=== PATIENT | male | born 1980 | race Caucasian/White ===

== ENCOUNTER → 2020-09-08 09:36 | Outpatient (BNVA) | payer MEDICAID, SELFPAY | PROVIDERS: Visit Provider Internal Medicine | DX: F11.20 Opioid dependence, uncomplicated (principal) | CPT/HCPCS: 80305; 99212 ==

== ENCOUNTER → 2020-10-09 09:35 | Outpatient (BNVA) | payer MEDICAID, SELFPAY | PROVIDERS: Visit Provider Internal Medicine | DX: F11.20 Opioid dependence, uncomplicated (principal); M25.512 Pain in left shoulder | CPT/HCPCS: 80305; 99212 ==

== ENCOUNTER → 2020-12-08 10:00 | Outpatient (BNVA) | payer MEDICAID, SELFPAY | PROVIDERS: Visit Provider Internal Medicine | DX: Z76.89 Persons encountering health services in other specified circumstances (principal) ==

== ENCOUNTER → 2020-12-27 10:13 | Outpatient (BNVA) | payer MEDICAID, SELFPAY | PROVIDERS: PCP Internal Medicine; Visit Provider Internal Medicine | DX: F11.99 Opioid use, unspecified with unspecified opioid-induced disorder (principal) ==

== ENCOUNTER → 2021-01-24 10:10 | Outpatient (BNVA) | payer MEDICAID, SELFPAY | PROVIDERS: PCP Internal Medicine; Visit Provider Internal Medicine | DX: F11.99 Opioid use, unspecified with unspecified opioid-induced disorder (principal) | CPT/HCPCS: 80305; 99212 ==

== ENCOUNTER → 2021-02-21 11:39 | Outpatient (BNVA) | payer MEDICAID, SELFPAY | PROVIDERS: PCP Internal Medicine; Visit Provider Internal Medicine | DX: F11.99 Opioid use, unspecified with unspecified opioid-induced disorder (principal) | CPT/HCPCS: 80305; 99212 ==

== ENCOUNTER → 2021-03-21 11:06 | Outpatient (BNVA) | payer MEDICAID, SELFPAY | PROVIDERS: Visit Provider Internal Medicine | DX: F11.20 Opioid dependence, uncomplicated (principal); Z51.81 Encounter for therapeutic drug level monitoring; Z79.899 Other long term (current) drug therapy | CPT/HCPCS: 80305; 99212 ==

== ENCOUNTER → 2021-04-18 11:02 | Outpatient (BNVA) | payer MEDICAID, SELFPAY | PROVIDERS: Visit Provider Internal Medicine | DX: F11.99 Opioid use, unspecified with unspecified opioid-induced disorder (principal) | CPT/HCPCS: 80305; 99211 ==

== ENCOUNTER → 2021-04-24 09:23 | Outpatient (BNVA) | payer SELFPAY | PROVIDERS: Visit Provider Physician Assistant | DX: Z02.79 Encounter for issue of other medical certificate (principal) ==

== ENCOUNTER → 2021-05-18 13:38 | Outpatient (BNVA) | payer MEDICAID, SELFPAY | PROVIDERS: Visit Provider Internal Medicine | DX: Z51.81 Encounter for therapeutic drug level monitoring (principal); F11.90 Opioid use, unspecified, uncomplicated | CPT/HCPCS: 80305; 99212 ==

== ENCOUNTER → 2021-07-13 14:07 | Outpatient (BNVA) | payer MEDICAID, SELFPAY | PROVIDERS: Visit Provider Internal Medicine | DX: Z51.81 Encounter for therapeutic drug level monitoring (principal) | CPT/HCPCS: 80305; 99211 ==

== ENCOUNTER → 2021-08-20 16:52 | Outpatient (BNVA) | payer MEDICAID, SELFPAY | PROVIDERS: Visit Provider Internal Medicine | DX: F11.99 Opioid use, unspecified with unspecified opioid-induced disorder (principal); M25.511 Pain in right shoulder; Z47.1 Aftercare following joint replacement surgery; Z98.890 Other specified postprocedural states | CPT/HCPCS: 99212 ==

== ENCOUNTER → 2021-09-19 14:09 | Outpatient (BNVA) | payer MEDICAID, SELFPAY | PROVIDERS: Visit Provider Internal Medicine | DX: Z51.81 Encounter for therapeutic drug level monitoring (principal); F11.90 Opioid use, unspecified, uncomplicated | CPT/HCPCS: 80305; 99212 ==

== ENCOUNTER → 2021-10-17 13:30 | Outpatient (BNVA) | payer MEDICAID, SELFPAY | PROVIDERS: Visit Provider Internal Medicine | DX: F11.20 Opioid dependence, uncomplicated (principal); Z51.81 Encounter for therapeutic drug level monitoring; Z79.899 Other long term (current) drug therapy | CPT/HCPCS: 80305; 99212 ==

== ENCOUNTER → 2021-11-14 14:06 | Outpatient (BNVA) | payer MEDICAID, SELFPAY | PROVIDERS: Visit Provider Internal Medicine | DX: Z51.81 Encounter for therapeutic drug level monitoring (principal); F11.20 Opioid dependence, uncomplicated | CPT/HCPCS: 80305; 99212 ==

== ENCOUNTER → 2021-12-03 13:43 | Outpatient (BNVA) | payer OTHER, MEDICAID, SELFPAY | PROVIDERS: PCP Internal Medicine; Visit Provider Nurse Practitioner Family | DX: R20.1 Hypoesthesia of skin (principal); G47.9 Sleep disorder, unspecified; F07.81 Postconcussional syndrome | CPT/HCPCS: 99212 ==

== ENCOUNTER → 2022-01-16 11:42 | Outpatient (BNVA) | payer OTHER, SELFPAY | PROVIDERS: Visit Provider Internal Medicine | DX: Z51.81 Encounter for therapeutic drug level monitoring (principal); F11.20 Opioid dependence, uncomplicated | CPT/HCPCS: 80305; 99212 ==

== ENCOUNTER → 2022-03-13 11:40 | Outpatient (BNVA) | payer OTHER, MEDICAID, SELFPAY | PROVIDERS: Visit Provider Internal Medicine | DX: Z51.81 Encounter for therapeutic drug level monitoring (principal); F11.20 Opioid dependence, uncomplicated; F07.81 Postconcussional syndrome; G43.909 Migraine, unspecified, not intractable, without status migrainosus | CPT/HCPCS: 80305; 99212 ==

== ENCOUNTER → 2022-05-10 10:08 | Outpatient (BNVA) | payer MEDICAID, SELFPAY | PROVIDERS: Visit Provider Internal Medicine | DX: Z51.81 Encounter for therapeutic drug level monitoring (principal); F11.20 Opioid dependence, uncomplicated | CPT/HCPCS: 80305; 99212 ==

== ENCOUNTER → 2022-05-17 10:40 | Outpatient (BNVA) | payer MEDICAID, SELFPAY | PROVIDERS: PCP Internal Medicine; Visit Provider Nurse Practitioner Family | DX: G43.909 Migraine, unspecified, not intractable, without status migrainosus (principal); R20.1 Hypoesthesia of skin; F07.81 Postconcussional syndrome; M25.519 Pain in unspecified shoulder; Z79.899 Other long term (current) drug therapy | CPT/HCPCS: 99212 ==

== ENCOUNTER → 2022-07-15 11:36 | Outpatient (BNVA) | payer MEDICAID, SELFPAY | PROVIDERS: Visit Provider Internal Medicine | DX: Z51.81 Encounter for therapeutic drug level monitoring (principal); F11.20 Opioid dependence, uncomplicated | CPT/HCPCS: 99212 ==

== ENCOUNTER → 2022-08-14 10:33 | Outpatient (BNVA) | payer MEDICAID, SELFPAY | PROVIDERS: PCP Internal Medicine; Visit Provider Nurse Practitioner Family | DX: F07.81 Postconcussional syndrome (principal); R20.1 Hypoesthesia of skin; S46.212A Strain of muscle, fascia and tendon of other parts of biceps, left arm, initial encounter; Z79.899 Other long term (current) drug therapy | CPT/HCPCS: 99212 ==

== ENCOUNTER → 2022-09-06 11:48 | Outpatient (BNVA) | payer MEDICAID, SELFPAY | PROVIDERS: Visit Provider Internal Medicine | DX: Z51.81 Encounter for therapeutic drug level monitoring (principal); F11.20 Opioid dependence, uncomplicated | CPT/HCPCS: 99212 ==

== ENCOUNTER → 2022-10-30 10:59 | Outpatient (BNVA) | payer MEDICAID, SELFPAY | PROVIDERS: Visit Provider Internal Medicine | DX: F11.20 Opioid dependence, uncomplicated (principal); Z79.899 Other long term (current) drug therapy; Z51.81 Encounter for therapeutic drug level monitoring | CPT/HCPCS: 99212 ==

== ENCOUNTER → 2022-11-13 11:05 | Outpatient (BNVA) | payer MEDICAID, SELFPAY | PROVIDERS: Visit Provider Nurse Practitioner Family | DX: F07.81 Postconcussional syndrome (principal); G43.909 Migraine, unspecified, not intractable, without status migrainosus; R20.1 Hypoesthesia of skin | CPT/HCPCS: 99212 ==

== ENCOUNTER → 2022-12-25 11:24 | Outpatient (BNVA) | payer MEDICAID, SELFPAY | PROVIDERS: PCP Internal Medicine; Visit Provider Nurse Practitioner Psychiatric/Mental Health | DX: Z51.81 Encounter for therapeutic drug level monitoring (principal); F11.20 Opioid dependence, uncomplicated | CPT/HCPCS: 80305; 99212 ==

== ENCOUNTER → 2023-02-13 11:35 | Outpatient (BNVA) | payer MEDICAID, SELFPAY | PROVIDERS: PCP Internal Medicine; Visit Provider Nurse Practitioner Family | DX: G43.909 Migraine, unspecified, not intractable, without status migrainosus (principal); F07.81 Postconcussional syndrome | CPT/HCPCS: 99212 ==

== ENCOUNTER → 2023-02-18 11:33 | Outpatient (BNVA) | payer MEDICAID, SELFPAY | PROVIDERS: PCP Internal Medicine; Visit Provider Nurse Practitioner Psychiatric/Mental Health | DX: F11.20 Opioid dependence, uncomplicated (principal) | CPT/HCPCS: 99212 ==

== ENCOUNTER 2023-04-04 09:36 | Outpatient (REF) | payer MEDICAID, SELFPAY ==
[2023-04-04 11:16] LABS: MANUAL DIFF FLAG NO
[2023-04-04 11:48] LABS: Basophils Absolute Auto 0.1 X10*3/uL (0.0-0.2); Basophils Percent Auto 0.6 % (0-2); Eosinophils Absolute Auto 0.2 X10*3/uL (0.0-0.4); Eosinophils Percent Auto 1.7 % (0-4); Hematocrit 53.1 % (42.0-52.0); Hemoglobin 17.7 g/dl (14.0-18.0); Imm Gran Abs Auto 0.05 X10*3/uL (0.00-0.03); Imm Gran Pct Auto 0.5 % (0.0-0.4); Lymphocytes Percent Auto 28.8 % (20-40); Mean Corpuscular HGB Conc 33.3 g/dl (31.0-36.0); Mean Corpuscular Hemoglobin 29.7 pg (27.0-33.0); Mean Corpuscular Volume 89.1 fL (80.0-98.0); Mean Platelet Volume 9.7 fL (9.4-12.4); Monocytes Absolute Auto 0.9 X10*3/uL (0.1-1.2); Monocytes Percent Auto 8.4 % (2-11); Neutrophils Absolute Auto 6.2 x10*3/uL (2.0-8.3); Platelet Count 290 X10*3/uL (160-400); Red Blood Count 5.96 X10*6/uL (4.60-5.80); Red Cell Distribution Width 13.3 % (11.0-16.0); White Blood Count 10.4 X10*3/uL (4.8-10.8)
[2023-04-04 12:41] LABS: Alanine Aminotransferase 57 U/L (0-40); Albumin Level 4.2 g/dL (3.5-5.0); Alkaline Phosphatase 30 U/L (39-117); Anion Gap 14 (12-20); Aspartate Amino Transferase 49 U/L (5-37); Bilirubin Total 0.8 mg/dL (0.0-1.0); Blood Urea Nitrogen 16 mg/dL (9-16); Calcium 9.5 mg/dL (8.4-10.2); Carbon Dioxide 30 mmol/L (22-29); Chloride 100 mmol/L (96-108); Cholesterol 182 mg/dL; Estimated Glomerular Filt Rate > 60; Glucose Random 72 mg/dL (60-115); HDL Cholesterol 33 mg/dL; LDL Cholesterol Calculated 133 mg/dl; Magnesium 1.9 mg/dL (1.6-2.6); Potassium 4.7 mmol/L (3.3-5.1); Sodium 139 mmol/L (135-145); Total Protein 6.6 g/dL (6.5-8.0); Triglycerides 82 mg/dL
[2023-04-04 13:04] LABS: Thyroid Stimulating Hormone 1.85 uIU/mL (0.32-4.0)
== END 2023-04-04 09:37 | disposition home or self-care (01) ==
LOC: HO.MANLDS 09:36
PROVIDERS: Visit Provider Internal Medicine
DX: Z00.00 Encounter for general adult medical examination without abnormal findings (principal); R00.0 Tachycardia, unspecified
CPT/HCPCS: 36415; 80053; 80061; 83735; 84443; 85025

== ENCOUNTER 2023-04-10 11:38 | Outpatient (REF) | payer MEDICAID, SELFPAY ==
--- NOTE | ~2023-04-10 | XR_ITS ---
EXAMINATION: XR BILATERAL HIPS WITH AP PELVIS CLINICAL INFORMATION: Bilateral hip pain COMPARISON: None available. TECHNIQUE: AP pelvis and 2 views of each hip FINDINGS: AP film of the pelvis does not demonstrate any evidence of acute fracture or diastases. Sacroiliac joints appear unremarkable. Mild increase density of the facet joints is seen which may be related to some degree of facet arthropathy. There are some changes of enthesopathy present. Some degenerative subchondral cysts are seen about the pubic symphysis. 2 views of the right hip do not demonstrate any evidence of acute fracture or dislocation. Hip joint space is maintained. No abnormal lytic or sclerotic lesions identified. No significant spurring is seen. 2 views of the left hip do not demonstrate any evidence of acute fracture or dislocation. Hip joint space maintained. No significant spurring. No abnormal lytic or sclerotic lesions. There is some mild spurring about the greater trochanter. XR/XR hip BI w PEL1V IMPRESSION: No significant bony abnormality of the AP pelvis or hips as described.
== END 2023-04-10 11:39 | disposition home or self-care (01) ==
LOC: HO.XRAY 11:38
PROVIDERS: Visit Provider Internal Medicine
DX: M25.552 Pain in left hip (principal)
CPT/HCPCS: 73521

== ENCOUNTER → 2023-04-15 11:36 | Outpatient (BNVA) | payer MEDICAID, SELFPAY | PROVIDERS: PCP Internal Medicine; Visit Provider Nurse Practitioner Psychiatric/Mental Health | DX: Z51.81 Encounter for therapeutic drug level monitoring (principal); F11.20 Opioid dependence, uncomplicated | CPT/HCPCS: 80305; 99212 ==

== ENCOUNTER → 2023-04-22 08:55 | Outpatient (BNVA) | payer SELFPAY | PROVIDERS: PCP Internal Medicine; Visit Provider Internal Medicine | DX: Z02.79 Encounter for issue of other medical certificate (principal) ==

== ENCOUNTER 2023-07-08 11:24 | Outpatient (AMB) | payer MEDICAID, SELFPAY ==
--- NOTE | 2023-07-08 11:25 | MHC.OFFVIS ---
Intake Vital Signs 07/08/23 11:29 BP 108/72 Blood Pressure Location Lt radial Position Sitting Pulse 94 Pulse Source Pulse Oximeter Pulse Oximetry (%) 95 Oxygen Delivery Method Room Air Intake Visit Reasons: MAT Visit Intake Note: The patient presents for a mat visit Digital Marketing Lead Required: No Allergies No Known Allergies Allergy (Verified 07/08/23 11:25) Do you need a note to return to daycare/school/sports/work: No HPI MAT Visit HPI Details Patient presents for follow up Currently prescribed Suboxone 8mg TID Reports he will need shoulder surgery later this year No concerns related to suboxone, finds it helpful [facility] Medical History (Updated 02/18/23 @ 12:44 by Opal Beach CNP) Opioid use disorder Shoulder pain Surgical History (Updated 02/13/23 @ 11:44 by Cami Roman CMA) History of shoulder surgery History of surgery Hx of rotator cuff surgery Family History Father Cancer Diabetes Hyperlipidemia Mother Cancer Hyperlipidemia HTN (hypertension) Seizures Social History Household Members: Spouse Alcohol intake: never Patient Tobacco Use Status: Never used Tobacco Current occupational status: other 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 Review of Systems Const Reports as per HPI and Reports no additional complaints Physical Exam Vital Signs: Last Vital Signs Pulse 94 07/08/23 11:29 BP 108/72 07/08/23 11:29 Pulse Ox 95 07/08/23 11:29 Oxygen Delivery Method Room Air 07/08/23 11:29 Const General: cooperative, healthy appearing and no acute distress Psych Appearance: well kempt Speech and movement: Clear speech present Affect: normal affect Attitude: cooperative Thought process: Normal thought process present Thought content: Normal thought content present Insight: Good insight present (Psych) Judgement: Good judgement present (Psych) Assessment & Plan Assessment & Plan (1) Opioid dependence: Code(s): F11.20 - Opioid dependence, uncomplicated Plan: continue suboxone at current dose follow up 3 months Coding Level of Care Code Est Pt Level 3 (18887) Diagnoses Opioid dependence F11.20
[2023-07-08 11:29] VITALS: BP 108/72; PULSE 94; O2SAT 95
== END 2023-07-08 11:51 | disposition home or self-care (01) ==
LOC: HO.HCC 11:24
PROVIDERS: PCP Internal Medicine; Visit Provider Nurse Practitioner Psychiatric/Mental Health
DX: F11.20 Opioid dependence, uncomplicated (principal)
CPT/HCPCS: 99213

== ENCOUNTER → 2023-07-08 11:24 | Outpatient (BNVA) | payer MEDICAID, SELFPAY | PROVIDERS: PCP Internal Medicine; Visit Provider Nurse Practitioner Psychiatric/Mental Health | DX: Z51.81 Encounter for therapeutic drug level monitoring (principal); F11.20 Opioid dependence, uncomplicated | CPT/HCPCS: 99213 ==

== ENCOUNTER 2023-09-03 10:10 | Outpatient (AMB) | payer MEDICAID, SELFPAY ==
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
[2023-09-03 10:16] VITALS: BP 118/72; PULSE 86; O2SAT 96
== END 2023-09-03 11:32 | disposition home or self-care (01) ==
PROVIDERS: Visit Provider Nurse Practitioner Family
DX: R20.1 Hypoesthesia of skin (principal); F07.81 Postconcussional syndrome; G44.309 Post-traumatic headache, unspecified, not intractable
CPT/HCPCS: 99214

== ENCOUNTER → 2023-09-03 10:10 | Outpatient (BNVA) | payer MEDICAID, SELFPAY | PROVIDERS: Visit Provider Nurse Practitioner Family | DX: F07.81 Postconcussional syndrome (principal); G43.909 Migraine, unspecified, not intractable, without status migrainosus; M25.511 Pain in right shoulder; R20.1 Hypoesthesia of skin; F11.20 Opioid dependence, uncomplicated | CPT/HCPCS: 99212 ==

== ENCOUNTER 2023-09-30 10:03 | Outpatient (AMB) | payer MEDICAID, SELFPAY ==
--- NOTE | 2023-09-30 10:05 | A.OFFVIS_ITS ---
Intake Vital Signs 09/30/23 10:10 BP 114/70 Blood Pressure Location Lt radial Position Sitting Pulse 100 Pulse Source Pulse Oximeter Pulse Oximetry (%) 97 Oxygen Delivery Method Room Air Intake Visit Reasons: MAT Visit Intake Note: the patient presents for a mat visit Grinding Room Inspector Required: No Allergies No Known Allergies Allergy (Verified 09/30/23 10:13) Do you need a note to return to daycare/school/sports/work: No HPI MAT Visit HPI Details Pt presents for DONAVON treatment and follow up. Feels stable in recovery, no cravings. Has shoulder surgery coming up in early October, has no concerns about pain co ntrol. Tolerating 8mg Suboxone tid, denies side effects. Reports life is good, trying to settle with workman's comp. Planning on taking trip soon to [place] with family. No questions or concerns today. [facility] Medical History (Updated 09/30/23 @ 10:35 by Cami Wilkes NP) Opioid use disorder Shoulder pain Surgical History History of shoulder surgery History of surgery Hx of rotator cuff surgery Family History Father Cancer Diabetes Hyperlipidemia Mother Cancer Hyperlipidemia HTN (hypertension) Seizures Social History Household Members: Spouse Alcohol intake: never Patient Tobacco Use Status: Never used Tobacco Current occupational status: other 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 Review of Systems Const Reports as per HPI Physical Exam Vital Signs: Last Vital Signs Pulse 100 09/30/23 10:10 BP 114/70 09/30/23 10:10 Pulse Ox 97 09/30/23 10:10 Oxygen Delivery Method Room Air 09/30/23 10:10 Const General: cooperative, healthy appearing and no acute distress Resp Effort & Inspection: normal respiratory effort Skin General skin exam: no rashes or lesions noted Psych Appearance: grossly normal and well kempt Mental Status: mental status grossly normal Affect: normal affect Attitude: cooperative Judgement: Good judgement present (Psych) Assessment & Plan Assessment & Plan (1) Opioid dependence: Code(s): F11.20 - Opioid dependence, uncomplicated Qualifiers: Substance use status: in remission Qualified Code(s): F11.21 - Opioid dependence, in remission Plan: Continue suboxone at current dose. Follow up in 3 months. Coding Level of Care Code Est Pt Level 3 (56369) Diagnoses Opioid dependence in remission F11.21 Substance use status: in remission
[2023-09-30 10:10] VITALS: BP 114/70; PULSE 100; O2SAT 97
== END 2023-09-30 10:37 | disposition home or self-care (01) ==
PROVIDERS: PCP Internal Medicine; Visit Provider Nurse Practitioner Family
DX: F11.21 Opioid dependence, in remission (principal)
CPT/HCPCS: 99213

== ENCOUNTER → 2023-09-30 10:03 | Outpatient (BNVA) | payer MEDICAID, SELFPAY | PROVIDERS: PCP Internal Medicine; Visit Provider Nurse Practitioner Psychiatric/Mental Health | DX: Z51.81 Encounter for therapeutic drug level monitoring (principal); F11.21 Opioid dependence, in remission | CPT/HCPCS: 99212 ==

== ENCOUNTER 2023-12-30 10:23 | Outpatient (AMB) | payer MEDICAID, SELFPAY ==
--- NOTE | 2023-12-30 10:25 | A.OFFVISCC_ITS ---
Intake Vital Signs 12/30/23 10:30 BP 124/72 Blood Pressure Location Lt radial Position Sitting Pulse 96 Pulse Source Pulse Oximeter Pulse Oximetry (%) 98 Oxygen Delivery Method Room Air Intake Visit Reasons: MAT Visit Intake Note: the patient presents for a mat visit Laboratory Animal Care Veterinarian Required: No Allergies No Known Allergies Allergy (Verified 12/30/23 10:31) Medication List - Last Reconciled 12/30/23 by Cami Wilkes, ANN-MARIE albuterol sulfate 90 mcg/actuation (Ventolin HFA) 2 puffs inhalation Q4-6H PRN amitriptyline 37.5 - 50 mg (1.5 - 2 x 25 mg) PO BEDTIME ascorbic acid (vitamin C) 1 g PO DAILY atorvastatin (Lipitor) 10 mg PO DAILY buprenorphine-naloxone 8-2 mg 1 film buccal TID gmlopdtrun-kgslaxbklrvwr-efye 50-300-40 mg (Fioricet) 1 - 2 caps PO Q4-6H PRN 90 days cholecalciferol (vitamin D3) 25 mcg PO DAILY dextroamphetamine-amphetamine 12.5 mg (Adderall) 12.5 mg PO DAILY 30 days dextroamphetamine-amphetamine 20 mg ER (Adderall XR) 20 mg PO QAM 30 days fluticasone propion-salmeterol 100-50 mcg/dose (Advair Diskus) 1 inh inhalation BID fremanezumab-vfrm (Ajovy Syringe) 225 mg (1.5 mL) subcut ONCE 30 days lisinopril-hydrochlorothiazide 20-25 mg 1 tab PO DAILY magnesium oxide 400 mg PO BEDTIME 30 days metoprolol succinate ER 50 mg PO DAILY montelukast (Singulair) 10 mg PO DAILY multivitamin 1 tab PO DAILY naloxone 4 mg/actuation (Narcan) 4 mg intranasal Q2M PRN riboflavin (vitamin B2) 200 mg (2 x 100 mg) PO BID 30 days testosterone cypionate 100 mg IM QWEEK Do you need a note to return to daycare/school/sports/work: No HPI MAT Visit HPI Details Pt presents for OUD treatment and follow up He has no concerns today for recovery Recently had surgery on his left shoulder, reports it went well. He is waiting to have surgery done on his right shoulder now, he has follow up with surgeon on 01/26 Tolerating dose well. Has no concerns for side effects at this time. [facility] Medical History (Updated 09/30/23 @ 10:35 by Cami Wilkes NP) Opioid use disorder Shoulder pain Surgical History History of shoulder surgery History of surgery Hx of rotator cuff surgery Family History Father Cancer Diabetes Hyperlipidemia Mother Cancer Hyperlipidemia HTN (hypertension) Seizures Social History Household Members: Spouse Alcohol intake: never Patient Tobacco Use Status: Never used Tobacco Current occupational status: other 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 Review of Systems Const Reports as per HPI Physical Exam Vital Signs: Last Vital Signs Pulse 96 12/30/23 10:30 BP 124/72 12/30/23 10:30 Pulse Ox 98 12/30/23 10:30 Oxygen Delivery Method Room Air 12/30/23 10:30 Const General: cooperative, healthy appearing and no acute distress Resp Effort & Inspection: normal respiratory effort Psych Appearance: grossly normal and well kempt Mental Status: mental status grossly normal Speech and movement: Normal speech and movement present Affect: normal affect Attitude: cooperative Thought content: Normal thought content present Insight: Good insight present (Psych) Judgement: Good judgement present (Psych) Assessment & Plan Assessment & Plan (1) Opioid use disorder: Code(s): F11.99 - Opioid use, unspecified with unspecified opioid-induced disorder Plan: -Mass pat reviewed -Tolerating suboxone dose 8mg tid -Follow up 3 months Medications: New naloxone 4 mg/actuation (Narcan) spray 1 dose into ONE nostril; alternate nostrils w each dose until help arrives 4 mg intranasal Q2M PRN 2 ea 0RF opioid overdose Refilled buprenorphine-naloxone 8-2 mg 1 film buccal TID 90 ea 2RF Coding Level of Care Code Est Pt Level 3 (13520) Diagnoses Opioid use disorder F11.99
[2023-12-30 10:30] VITALS: BP 124/72; PULSE 96; O2SAT 98
== END 2023-12-30 11:11 | disposition home or self-care (01) ==
PROVIDERS: PCP Internal Medicine; Visit Provider Nurse Practitioner Family
DX: F11.99 Opioid use, unspecified with unspecified opioid-induced disorder (principal)
CPT/HCPCS: 99213

== ENCOUNTER → 2023-12-30 10:23 | Outpatient (BNVA) | payer MEDICAID, SELFPAY | PROVIDERS: PCP Internal Medicine; Visit Provider Nurse Practitioner Family | DX: F11.20 Opioid dependence, uncomplicated (principal) | CPT/HCPCS: 99212 ==

== ENCOUNTER 2024-01-07 11:14 | Outpatient (AMB) | payer MEDICAID, SELFPAY ==
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
[2024-01-07 11:37] VITALS: BP 152/100; PULSE 112; O2SAT 98
== END 2024-01-07 12:04 | disposition home or self-care (01) ==
PROVIDERS: PCP Internal Medicine; Visit Provider Nurse Practitioner Family
DX: G44.309 Post-traumatic headache, unspecified, not intractable (principal); F07.81 Postconcussional syndrome
CPT/HCPCS: 99214

== ENCOUNTER → 2024-01-07 11:14 | Outpatient (BNVA) | payer MEDICAID, SELFPAY | PROVIDERS: PCP Internal Medicine; Visit Provider Nurse Practitioner Family | DX: G43.909 Migraine, unspecified, not intractable, without status migrainosus (principal); F07.81 Postconcussional syndrome | CPT/HCPCS: 99212 ==

== ENCOUNTER 2024-02-13 15:10 | Outpatient (REF) | payer MEDICAID, SELFPAY ==
[2024-02-13 17:27] LABS: MANUAL DIFF FLAG NO
[2024-02-13 17:31] LABS: Basophils Percent Auto 0.4 % (0-2); Eosinophils Absolute Auto 0.2 X10*3/uL (0.0-0.4); Eosinophils Percent Auto 2.3 % (0-4); Hematocrit 53.2 % (42.0-52.0); Hemoglobin 18.1 g/dl (14.0-18.0); Imm Gran Abs Auto 0.03 X10*3/uL (0.00-0.03); Imm Gran Pct Auto 0.3 % (0.0-0.4); Lymphocytes Absolute Auto 2.9 X10*3/uL (1.2-4.9); Lymphocytes Percent Auto 29.3 % (20-40); Mean Corpuscular Hemoglobin 29.8 pg (27.0-33.0); Mean Corpuscular Volume 87.5 fL (80.0-98.0); Mean Platelet Volume 9.6 fL (9.4-12.4); Monocytes Absolute Auto 0.9 X10*3/uL (0.1-1.2); Monocytes Percent Auto 8.6 % (2-11); Neutrophils Percent Auto 59.1 % (45-73); Platelet Count 231 X10*3/uL (160-400); Red Blood Count 6.08 X10*6/uL (4.60-5.80); Red Cell Distribution Width 13.2 % (11.0-16.0); White Blood Count 10.1 X10*3/uL (4.8-10.8)
[2024-02-13 17:42] LABS: Alanine Aminotransferase 51 U/L (0-40); Albumin Level 4.2 g/dL (3.5-5.0); Alkaline Phosphatase 41 U/L (39-117); Anion Gap 12 (12-20); Aspartate Amino Transferase 42 U/L (5-37); Bilirubin Total 0.4 mg/dL (0.0-1.0); Blood Urea Nitrogen 17 mg/dL (9-16); Calcium 9.8 mg/dL (8.4-10.2); Carbon Dioxide 29 mmol/L (22-29); Chloride 101 mmol/L (96-108); Estimated Glomerular Filt Rate > 60; Glucose Random 85 mg/dL (60-115); Sodium 138 mmol/L (135-145); Total Protein 6.9 g/dL (6.5-8.0)
[2024-02-13 18:10] LABS: Erythrocyte Sedimentation Rate 1 MM/HR (0-15)
== END 2024-02-13 15:11 | disposition home or self-care (01) ==
LOC: HO.MANLDS 15:10
PROVIDERS: Visit Provider Internal Medicine
DX: R10.31 Right lower quadrant pain (principal)
CPT/HCPCS: 36415; 80053; 85025; 85652

== ENCOUNTER 2024-03-23 10:24 | Outpatient (AMB) | payer MEDICAID, SELFPAY ==
--- NOTE | 2024-03-23 10:25 | MHC.AM.SUB ---
Vital Signs 03/23/24 10:27 BP 130/70 Blood Pressure Location Lt brachial Position Sitting Pulse 80 Pulse Source Pulse Oximeter Pulse Oximetry (%) 96 Intake Visit Reasons: MAT Visit Allergies No Known Allergies Allergy (Verified 01/07/24 11:37) HPI HPI MAT Visit: Details: Patient presents for MAT visit Doing well overall Has no concerns for recovery Tolerating suboxone 8mg TID, has no cravings or withdrawal symptoms Is getting a new puppy soon that he is excited about HPI Comments Details: Patient presents for MAT visit [facility] Medical History (Updated 09/30/23 @ 10:35 by Cami Wilkes NP) Opioid use disorder Shoulder pain Surgical History History of shoulder surgery History of surgery Hx of rotator cuff surgery Family History Father Cancer Diabetes Hyperlipidemia Mother Cancer Hyperlipidemia HTN (hypertension) Seizures Social History Household Members: Spouse Alcohol intake: never Patient Tobacco Use Status: Never used Tobacco Current occupational status: other 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 Review of Systems Const Reports as per HPI Physical Exam Vital Signs: Last Vital Signs Pulse 80 03/23/24 10:27 BP 130/70 03/23/24 10:27 Pulse Ox 96 03/23/24 10:27 Const General: cooperative and no acute distress Resp Effort & Inspection: normal respiratory effort and able to speak in complete sentences Psych Appearance: grossly normal Mental Status: mental status grossly normal Speech and movement: Normal speech and movement present Affect: normal affect Attitude: cooperative Thought process: Normal thought process present Assessment & Plan Assessment & Plan (1) Opioid use disorder: Code(s): F11.99 - Opioid use, unspecified with unspecified opioid-induced disorder Category: Medical Plan: -MAss pat reviewed -Suboxone refilled and sent to pharmacy -Follow up 3 months Medications: Refilled buprenorphine-naloxone 8-2 mg 1 film buccal TID 90 ea 2RF
[2024-03-23 10:27] VITALS: BP 130/70; PULSE 80; O2SAT 96
== END 2024-03-23 10:47 | disposition home or self-care (01) ==
PROVIDERS: PCP Internal Medicine; Visit Provider Nurse Practitioner Family
DX: F11.99 Opioid use, unspecified with unspecified opioid-induced disorder (principal)
CPT/HCPCS: 99213

== ENCOUNTER → 2024-03-23 10:24 | Outpatient (BNVA) | payer MEDICAID, SELFPAY | PROVIDERS: PCP Internal Medicine; Visit Provider Nurse Practitioner Family | DX: Z51.81 Encounter for therapeutic drug level monitoring (principal); F11.20 Opioid dependence, uncomplicated | CPT/HCPCS: 99212 ==

== ENCOUNTER 2024-04-07 10:32 | Outpatient (REF) | payer MEDICAID, SELFPAY ==
[2024-04-07 13:49] LABS: Estimated Average Glucose 105 mg/dL; Hemoglobin A1c % 5.3 % (<6.0)
[2024-04-07 14:06] LABS: Alanine Aminotransferase 39 U/L (0-40); Albumin Level 4.1 g/dL (3.5-5.0); Alkaline Phosphatase 36 U/L (39-117); Anion Gap 13 (12-20); Aspartate Amino Transferase 48 U/L (5-37); Bilirubin Total 0.6 mg/dL (0.0-1.0); Blood Urea Nitrogen 16 mg/dL (9-16); Calcium 9.9 mg/dL (8.4-10.2); Carbon Dioxide 31 mmol/L (22-29); Chloride 99 mmol/L (96-108); Estimated Glomerular Filt Rate > 60; Ferritin 433 ng/mL (20-250); Glucose Random 62 mg/dL (60-115); Iron 148 mcg/dL (45-160); Percent Iron Saturation 39 % (15-50); Potassium 3.6 mmol/L (3.3-5.1); Sodium 139 mmol/L (135-145); Thyroid Stimulating Hormone 0.47 uIU/mL (0.32-4.0); Total Iron Binding Capacity 380 mcg/dL (228-428); Total Protein 7.2 g/dL (6.5-8.0); Unsaturated Iron Binding 232 ug/dL; Vitamin D 25-OH Total 104.6 ng/mL (>30)
[2024-04-07 14:07] LABS: Folate 12.1 ng/mL (> or = 4.0); Vitamin B12 536 pg/mL (200-900)
[2024-04-11 17:29] LABS: Testosterone, Total 172 ng/dL (250-1100)
== END 2024-04-07 10:33 | disposition home or self-care (01) ==
LOC: HO.MANLDS 10:32
PROVIDERS: Visit Provider Internal Medicine
DX: R53.83 Other fatigue (principal)
CPT/HCPCS: 36415; 80053; 82306; 82607; 82728; 82746; 83036; 83540; 84402; 84403; 84443

== ENCOUNTER 2024-04-13 12:57 | Outpatient (REF) | payer MEDICAID, SELFPAY ==
--- NOTE | ~2024-04-13 | CT_ITS ---
EXAMINATION: CT ABDOMEN AND PELVIS WITH CONTRAST CLINICAL INFORMATION: Right lower quadrant pain. COMPARISON: None available. TECHNIQUE: Multidetector volumetric images were obtained from the superior aspect of the liver through the pubic symphysis following administration 85 mL of Omnipaque 350 intravenous contrast. Sagittal and coronal reformatted images were obtained on the technologist's workstation. Oral contrast: Yes This CT examination was performed using dose optimization techniques as appropriate, variously including the following: *Automated exposure control *Adjustment of mA and/or kV according to patient size (this includes techniques or standardized protocols for targeted exams where dose is matched to indication/reason for exam; i.e. extremities or head) *Use of iterative reconstruction technique DLP: 583 mGy-cm FINDINGS: LUNG BASES: Nonspecific distal esophageal wall thickening. Small hiatal hernia. LIVER, GALLBLADDER, AND BILIARY TREE: The liver is normal in size, shape, and attenuation. No focal hepatic lesion or biliary ductal dilatation is present. The gallbladder is unremarkable with no evidence of radiopaque gallstones, gallbladder wall thickening, or obvious pericholecystic inflammatory changes. PANCREAS: Unremarkable. SPLEEN: Unremarkable. ADRENAL GLANDS: Unremarkable. KIDNEYS AND URETERS: The kidneys are normal in size, shape, and attenuation. No hydronephrosis, hydroureter, or calculi seen. No perinephric fluid collection. BLADDER: Unremarkable. GASTROINTESTINAL TRACT: Small and large bowel loops are of normal caliber. No small bowel obstruction. The appendix is within normal limits. ABDOMINAL WALL: Small fat-containing left inguinal hernia.. LYMPH NODES: No bulky lymphadenopathy. VASCULAR: Normal caliber abdominal aorta. PELVIC VISCERA: Enlarged prostate gland. OSSEOUS STRUCTURES: No destructive bone lesions. CT/CT abdomen pelvis w IV con IMPRESSION: No acute abnormality in the abdomen or pelvis.
[2024-04-13] MEDS: iohexoL 350 MG/ML 100 ML INFUS..BTL 85 ML IV (15:24)
[2024-04-13] MEDS: Barium Sulfate Oral (Mocha) 450 ML ORAL.SUSP 900 ML PO (15:35)
== END 2024-04-13 12:58 | disposition home or self-care (01) ==
LOC: HO.CT 12:57
PROVIDERS: PCP Internal Medicine; Visit Provider Internal Medicine
DX: R10.31 Right lower quadrant pain (principal)
CPT/HCPCS: 74177; Q9967

== ENCOUNTER 2024-04-16 09:54 | Outpatient (REF) | payer MEDICAID, SELFPAY ==
[2024-04-16 14:15] LABS: Iron 160 mcg/dL (45-160); Percent Iron Saturation 41 % (15-50); Total Iron Binding Capacity 391 mcg/dL (228-428); Unsaturated Iron Binding 231 ug/dL
[2024-04-16 14:19] LABS: Ferritin 565 ng/mL (20-250)
[2024-04-19 10:59] LABS: Transferrin 333 mg/dL (188-341)
== END 2024-04-16 09:55 | disposition home or self-care (01) ==
LOC: HO.MANLDS 09:54
PROVIDERS: Visit Provider Internal Medicine
DX: R77.8 Other specified abnormalities of plasma proteins (principal)
CPT/HCPCS: 36415; 82728; 83540; 84466

== ENCOUNTER → 2024-04-16 10:43 | Outpatient (BNVA) | payer SELFPAY | PROVIDERS: PCP Internal Medicine; Visit Provider Physician Assistant | DX: Z02.79 Encounter for issue of other medical certificate (principal) ==

== ENCOUNTER 2024-05-10 11:05 | Outpatient (AMB) | payer MEDICAID, SELFPAY ==
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
[2024-05-10 11:16] VITALS: BP 124/80; PULSE 99; O2SAT 95
== END 2024-05-10 11:55 | disposition home or self-care (01) ==
PROVIDERS: PCP Internal Medicine; Visit Provider Nurse Practitioner Family
DX: G43.909 Migraine, unspecified, not intractable, without status migrainosus (principal); F07.81 Postconcussional syndrome; G47.9 Sleep disorder, unspecified; R20.1 Hypoesthesia of skin
CPT/HCPCS: 99214

== ENCOUNTER → 2024-05-10 11:05 | Outpatient (BNVA) | payer MEDICAID, SELFPAY | PROVIDERS: PCP Internal Medicine; Visit Provider Nurse Practitioner Family | DX: G43.909 Migraine, unspecified, not intractable, without status migrainosus (principal); F07.81 Postconcussional syndrome; G47.9 Sleep disorder, unspecified; R20.1 Hypoesthesia of skin | CPT/HCPCS: 99212 ==

== ENCOUNTER 2024-08-16 13:43 | Outpatient (AMB) | payer MEDICAID, SELFPAY ==
--- NOTE | 2024-08-16 13:58 | A.OFFVISCC_ITS ---
Intake Visit Reasons: MAT Visit Allergies No Known Allergies Allergy (Verified 05/10/24 11:17) HPI HPI MAT Visit: Details: Patient presents for follow up Currently prescribed Suboxone 8mg TID Surgery scheduled for October no issues related to suboxone --tolerating dose PFSH Medical History (Updated 08/19/24 @ 14:41 by Opal Beach CNP) Opioid use disorder Shoulder pain Surgical History History of shoulder surgery History of surgery Hx of rotator cuff surgery Family History Father Cancer Diabetes Hyperlipidemia Mother Cancer Hyperlipidemia HTN (hypertension) Seizures Social History Household Members: Spouse Alcohol intake: never Patient Tobacco Use Status: Never used Tobacco Current occupational status: other 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 Review of Systems Const Reports as per HPI and Reports no additional complaints Physical Exam Const General: cooperative and no acute distress Psych Appearance: grossly normal Mental Status: mental status grossly normal Speech and movement: Normal speech and movement present Affect: normal affect Attitude: cooperative Thought process: Normal thought process present Assessment & Plan Assessment & Plan (1) Opioid dependence: Code(s): F11.20 - Opioid dependence, uncomplicated Category: Medical Qualifiers: Substance use status: in remission Qualified Code(s): F11.21 - Opioid dependence, in remission Plan: * continue suboxone at current dose * follow up 3 months--upcoming surgery
== END 2024-08-16 14:18 | disposition home or self-care (01) ==
PROVIDERS: PCP Internal Medicine; Visit Provider Nurse Practitioner Psychiatric/Mental Health
DX: F11.21 Opioid dependence, in remission (principal)
CPT/HCPCS: 99213

== ENCOUNTER → 2024-08-16 13:43 | Outpatient (BNVA) | payer MEDICAID, SELFPAY | PROVIDERS: PCP Internal Medicine; Visit Provider Nurse Practitioner Psychiatric/Mental Health | DX: F11.21 Opioid dependence, in remission (principal); Z51.81 Encounter for therapeutic drug level monitoring | CPT/HCPCS: 99212 ==

== ENCOUNTER 2024-12-07 10:10 | Outpatient (AMB) | payer MEDICAID, SELFPAY ==
[2024-12-07 10:17] VITALS: BP 122/80; PULSE 93; O2SAT 95; BMI 32.1
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
--- OUTSIDE RECORDS SUMMARY | 2024-12-07 10:48 | XMS_ITS | Data Portability ---
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 off but improved f/u with neuro Fatigue 21468658 R53.83 Vitamin D deficiency 347 56616 E55.9 Tick bite without infection 352267819 W57.XXXA Essential hypertension 11374368 I10 forgot bp med today [id number] Abhishek Otoole [facility] Internal Medicine [address] [facility] [place] [address] 11/03/2019 11:18:23 11/03/2019 11:39:12 Hypercholesterolemia 36307533 E78.00 Acute sinusitis 19003732 J01.90 Male hypogonadism 494708 06 E29.1 [id number] Abhishek Otoole [facility] Internal Medicine [address] [facility] [place] [address] 01/05/2021 12:02:11 01/05/2021 15:37:02 Active or passive immunization 410999035 Z23 discussion will be following Adult [facility] examination 066964826 Z00.00 doing well overall Asthma 471961276 J45.90 9 relates has been exposed to black mold and has been wheezing since exposure (in house where he was working) relates he has been using albuterol and is having sob will use pred pulse dose 97659 Abhishek Otoole [facility] Internal Medicine [address] [facility], [place] [address] 03/26/2022 10:04:50 03/26/2022 10:56:00 Active or passive immunization 090386768 Z23 discussion will be following Adult [facility] examination 274128042 Z00.01 still on WCstill having issues with his shoulders and this is still in contention with Asthma 828085907 J45.90 9 relates that he is doing better overall had a tough winter Hypercholesterolemia 136 30774 E78.00 [id number] Abhishek Otoole [facility] Internal Medicine [address] [facility] [place] [address] 08/19/2022 10:24:30 08/19/2022 12:31:43 Hypercholesterolemia 78170205 E78.00 will need to rechk Asthma 856298584 J45.90 9 relates that he is using albut inhaler about twice a week Seasonal a llergic rhinitis 933877550 J30.2 will refill and cont flonase [id number] Abhishek Otoole [facility] Internal [facility] [address] [facility] [place] [address] 04/01/2023 11:57:11 04/01/2023 13:10:00 Active or passive immunization 683701114 Z23 discussion will be following Adult [facility] examination 574505008 Z00.00 Tachycardia 9621813 R00. 0 Hypertensive disorder 38 870507 I10 [id number] Abhishek Otoole [facility] Internal Medicine [address] [facility] [place] [address] 08/22/2023 11:01:00 08/22/2023 12:18:14 Asthma 395100780 J45.909 relates that he is using albut inhaler about twice a week Hypercholesterolemia 136 63055 E78.00 will need to rechk Tachycardia 9550552 R00. 0 doing great no issues Hypertensive disorder 38 896153 I10 much better feels that home Family his tory of malignant melanoma 614747280 Z80.7 [id number] [facility] Internal Medicine [address] [facility] [place] [address] 02/13/2024 14:11:27 02/13/2024 16:03:26 Right lower quadrant pain 145658720 R10.31 Acute epididymitis 40856 000 N45.1 [id number] Abhishek Otoole [facility] Internal Medicine [address] [facility] [place] [address] 04/07/2024 09:46:38 04/07/2024 14:17:36 Active or passive immunization 559386781 Z23 discussion will be following Adult heal th examination 992048650 Z00.01 doing ok but has evid of achilles tendinitis on left Depression screening 171 078768 Z13.31 Neg Screening Fatigue 53696182 R53.83 needs lab Achilles tendinitis 1165 4001 M76.62 [id number] CARLEY ALEJANDRE [facility] [address] [facility] [place] [address] 10/05/2024 15:33:38 10/05/2024 16:38:31 Achilles tendinitis 69771259 M76.62 will start with XR Asthma 799899195 J45.90 9 relates that he is using albut inhaler about twice a week Depression screening 171 060583 Z13.31 Neg Screening Health Concerns Section Related Observation LastModified by Organization Detai ls LastModified Time None Recorded Concern Status LastModified by Organization Details LastModified Time None Recorded Advance Directives Directive None Recorded Payers Encounter Date Sequence Insurance Name Policy Number Policy Parekh Covered Member ID Parekh Member ID Guarantor Name 04/01/2023 1 [place] [facility] Bib Ellis [id number] Bib Ellis 08/22/2023 1 [place] [facility] Bib Arandain [id number] Bib Ellis 02/13/2024 1 [place] [facility] Bib Arandain [id number] Bib Ellis 04/07/2024 1 [place] [facility] Bib Antonio Ellis [id number] Bib Ellis 10/05/2024 1 [place] [facility] Bib Ellis [id number] Bib Ellis Notes Date Note Type Note Provider Name a sc Address Organization Details Recorded Time text/html Annual WellnessReported bypatient.Diet and Nutrition:healthy diet Fracture Risk:no history of fractures; no recent explained fracture; no sudden unexplained fractures; no previous musculoskeletal injuries Physical Activity:exercises on a regular basis; recent increase in physical activity; good physical condition Additional Lifestyle Factors:no tobacco use; no alcohol intake; stopped drinking alcohol Depression Risk:never feels sad, empty, or tearful; no loss of interest in activities; no significant changes in weight; no sleep disturbances or insomnia; no agitation; no loss of energy; no feelings of worthlessness or guilt; no thoughts of suicide; no history of depression; no history of mood disorders Hearing:no loss of hearing Vision:no vision problemsNotes:not using dextroamphet very often only when he has a day when he needs to concentrate we are going to talk about stopping this given his bp has been stressed and relates has noticed bp is elevated Abhishek MonoJohnnie Otoole DO [address] [place] [address], [address], [facility] Internal Medicine 04/01/2023 12:45:46 3 text/html here for rechk 'he is doing ok at home with the bp and is feeling much betterhis pulse is also doing goodno cp no sob Abhishek MonoJohnnie Otoole DO [address] [place] [address], [address], [facility] 08/22/2023 11:31:15 4 text/html here for jadon and relates that he has a RLQ abdominal pain very pinpoint is always present and feels deep inside able to move bowels x 3-4 days no fever able to eat no nausea Abhishek VillarealJohnnie Otoole DO [address] [place] [address], [address], [facility] Internal Medicine 02/13/2024 14:44:34 4 text/html Annual WellnessReported bypatient.Diet and Nutrition:healthy diet Fracture Risk:no history of fractures; no recent explained fracture; no sudden unexplained fractures; no previous musculoskeletal injuries Physical Activity:exercises on a regular basis; recent increase in physical activity; good physical condition Additional Lifestyle Factors:no tobacco use; no alcohol intake; stopped drinking alcohol Depression Risk:never feels sad, empty, or tearful; no loss of interest in activities; no significant changes in weight; no sleep disturbances or insomnia; no agitation; no loss of energy; no feelings of worthlessness or guilt; no thoughts of suicide; no history of depression; no history of mood disorders Hearing:no loss of hearing Vision:no vision problems Abhishek Otoole DO [address] [facility], [place], [address], [facility] Internal Medicine 04/07/2024 10:26:10 4 text/html f/u achilles tendinitis left achilles tendinitis: no improvement with bracing and anti-inflammatorythe patient has inflammation and build uppossible scar tissue vs enthesopathy vs tear recommended fu XR and MRIneed XR first tenderness to palpation at insertion point patient agrees CARLEY ALEJANDRE [address] [place], [address], [facility] Internal Medicine 10/05/2024 16:12:03
--- OUTSIDE RECORDS SUMMARY | 2024-12-07 10:49 | XMS_ITS | Continuity of Care Document ---
Author Organization [facility], [facility] Internal Medicine Address [address] [facility] [address] Assessment No assessment recorded. Plan of Treatment Reminders Order Date Submit Date Provider Last Modified By Organization Details Last Modified Time Details Appointments ANNUAL EXAM 2024 12:00P M DR OTOOLE Not available Not available Not available Lab None recorded . Referral None recorded . Procedures None recorded . Surgeries None recorded . Imaging XR, ankle, 3 or more view 2023 024 [facility], [facility] [place], [address], 10/15/2024 17:18:19 Medication Orders None recorded . Patient TargetsNo targets recorded. Patient Instructions Encounter Date Encounter Id Patient Instructions Last Modified By Organization Details Last Modified Time 10/05/2024 [id number] pulse oximetry* Not available 10/05/2024 21:30:08 learning about asthma Not available 10/05/2024 21:30:08 Reason for Referral None Reported. Results Created Date Observation Date Name Description Value Unit Range Abnormal Flag Note LastModifiedBy Organization Detail LastModifiedTime 10/05/2010/05/2024 pulse oxime try* Result 97% Room Air Not Available [facility] Internal Medicine [address] [facility] [address], [place], [address], 10/04/2024 16:06:19 10/15/20 24 10/15/2024 XR, ankle , 3 or more view No observ ation record ed. [email or web address] Not Available 2023 10:29:45 11/08/20 24 11/08/2024 MRI, ankle , w/o contr ast No observ ation record ed. [email or web address] Not Available 2023 12:24:32 Result Notes None recorded. Problems Name Problem SNOMED Code Status Onset Date Resolution Date Notes Provider Name and Address Organization Details Recorded Time Asthma 528258670 [facility] 12:20:05 Hyperchol esterolem ia 86699963 Active 2018 Abhishek Otoole DO [address] [place] [address], [address], [facility] Internal Medicine 9 11:33:43 Seasonal allergic rhinitis 369144334 Active 2021 Abhishek Otoole DO [address] [place] [address], [address], [facility] Internal Medicine 2 10:53:21 Tachycard ia 9892243 Active 2022 Abhishek Otoole DO [address] [place] [address], [address], [facility] Internal Medicine 3 12:41:55 Hypertens jorgito disorder 05966026 Active 2022 Abhishek Otoole DO [address] [place] [address], [address], [facility] Internal Medicine 3 12:43:12 Bilateral hip joint pain 643322087870 06320 Active 2022 Abhishek Otoole DO [address] [place] [address], [address], [facility] Internal Medicine 3 22:16:28 Family history of malignant melanoma 369169879 Active 2022 Abhishek Otoole DO [address] [place] [address], [address], [facility] Internal Medicine 3 11:16:02 Cough 81341830 Active 2022 Abhishek Otoole DO [address] [place] [address], [address], [facility] Internal Medicine 3 16:03:38 Right lower quadrant pain 272730657 Active 2023 Abhishek Otoole, DO [address] [place] [address], [address], [facility] Internal Medicine 4 14:39:38 Acute epididymi tis 78070015 Active 2023 Abhishek Gina Jeannette, DO [address] [place] [address], [address], [facility] Internal Medicine 4 14:43:23 Fatigue 19990716 Active 2023 Abhishek Otoole, DO [address] [place] [address], [address], [facility] Internal Medicine 4 10:23:21 Achilles tendiniti s 98057719 Active 2023 Abhishek Otoole, DO [address] [place] [address], [address], [facility] Internal Medicine 4 10:24:21 Achilles tendiniti s 10534796 Active 2023 Abhishek Otoole, DO [address] [place] [address], [address], [facility] Internal Medicine 4 10:24:23 Serum ferritin above reference range 915590755 Active 2023 Abhishek Otoole, DO [address] [place] [address], [address], [facility] Internal Medicine 4 21:31:58 Hypotesto steronism 618270760863 4 Active 2023 Abhishek Otoole, DO [address] [place] [address], [address], [facility] Internal Medicine 4 22:57:20 Pain of left ankle joint 714039393725 97838 Active 2023 CARLEY ALEJANDRE [address] [place] [address], [address], [facility] Internal Medicine 4 10:30:14 Os trigonum impingeme nt 992187911 Active 2023 CARLEY ALEJANDRE [address] [place], [address], [facility] 4 12:24:54 Notes:herniated disc- Dr. Niranjan burroughs Problem Notes None recorded. Medical Equipment None Reported. [...] and Address Organization Details Last Updated DateTime 167.64 cm 32.8 kg/m2 80507.2 5 g 100 /min 97 % 97 % 120 mm[Hg] 78 mm[Hg] Kathie Lawrence [facility] Internal Medicine 4 15:38:29 Social History Question Answer Notes LastModified by Organizat ion Details LastModified Time Tobacco Smoking Status Never Smoker Krystina torres [facility] Internal Medicine 03/20/2018 15:47:21 What Was The [...] virus, quadrivalent, preservative 9 completed Not Available [facility] 11/07/2023 11:38:52 Influenza, split virus, quadrivalent, preservative 0 completed Not Available [facility] 11/07/2023 11:38:52 Past Encounters Encounter ID Performer Location Encounter Start Date Encounter Closed Date Diagnosis/Indication Diagnosis SNOMED-CT Code Diagnosis ICD10 Code Diagnosis Note [id number] CARLEY ALEJANDRE [facility] Internal Medicine [address] [facility] [place] [address] 10/05/2024 15:33:38 10/05/2024 16:38:31 Achilles tendinitis 71894977 M76.62 will start with XR Asthma 966224151 J45.90 9 relates that he is using albut inhaler about twice a week Depression screening 171 360055 Z13.31 Neg Screening Health Concerns Section Related Observation LastModified by Organization Detai ls LastModified Time None Recorded Concern Status LastModified by Organization Details LastModified Time None Recorded Payers Encounter Date Sequence Insurance Name Policy Number Policy Parekh Covered Member ID Parekh Member ID Guarantor Name 10/05/2024 1 [place] [facility] Bib Ellis [id number] Bib Ellis Notes Date Note Type Note Provider Name a nd Address Organization Details Recorded Time 10/05/2024 text/html f/u achilles tendinitis left achilles tendinitis: no improvement with bracing and anti-inflammatoryt he patient has inflammation and build uppossible scar tissue vs enthesopathy vs tear recommended fu XR and MRIneed XR first tenderness to palpation at insertion point patient agrees CARLEY ALEJANDRE [address] [facility], [place], [address], [facility] 10/05/2024 16:12:03
== END 2024-12-07 11:00 | disposition home or self-care (01) ==
PROVIDERS: PCP Internal Medicine; Visit Provider Nurse Practitioner Family
DX: G44.309 Post-traumatic headache, unspecified, not intractable (principal); F07.81 Postconcussional syndrome; G47.9 Sleep disorder, unspecified; R20.1 Hypoesthesia of skin
CPT/HCPCS: 99214

== ENCOUNTER → 2024-12-07 10:10 | Outpatient (BNVA) | payer MEDICAID, SELFPAY | PROVIDERS: PCP Internal Medicine; Visit Provider Nurse Practitioner Family | DX: F07.81 Postconcussional syndrome (principal); G43.909 Migraine, unspecified, not intractable, without status migrainosus; G47.9 Sleep disorder, unspecified; R20.1 Hypoesthesia of skin | CPT/HCPCS: 99212 ==

== ENCOUNTER 2024-12-13 08:51 | Outpatient (AMB) | payer MEDICAID, SELFPAY ==
--- NOTE | 2024-12-13 08:52 | A.OFFVISCC_ITS ---
Intake Visit Reasons: MAT Tele Allergies No Known Allergies Allergy (Verified 12/07/24 10:19) HPI HPI MAT Tele: Details: Patient presents for follow up via telehealth Recent surgery and discovered that he needs a partial shoulder replacement only replacing the ball and not the socket some anxiety around this --will be his 6th surgery in 4 years no issues related to suboxone Review of Systems Const Reports as per HPI and Reports no additional complaints Telehealth Telehealth Telehealth Platform: Telephone Location of provider rendering services: practice address Location of patient: address on file Patient Identification confirmed using: Name, : Yes Telehealth method: voice only Patient verbally consented to treatment: Yes Patient verbally consented to billing insurance company: Yes Minutes spent on Phone/Video with Pt.: 15 [facility] Medical History (Updated 08/19/24 @ 14:41 by Opal Beach CNP) Opioid use disorder Shoulder pain Surgical History History of shoulder surgery History of surgery Hx of rotator cuff surgery Family History Father Cancer Diabetes Hyperlipidemia Mother Cancer Hyperlipidemia HTN (hypertension) Seizures Social History Household Members: Spouse Alcohol intake: never Patient Tobacco Use Status: Never used Tobacco Current occupational status: other 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 Assessment & Plan Assessment & Plan (1) Opioid dependence: Code(s): F11.20 - Opioid dependence, uncomplicated Category: Medical Qualifiers: Substance use status: in remission Qualified Code(s): F11.21 - Opioid dependence, in remission Plan: * continue suboxone at current dose * follow up 4 months
--- OUTSIDE RECORDS SUMMARY | 2024-12-13 09:15 | XMS_ITS | Continuity of Care Document ---
Author Organization [facility], NAN Nino PT Address [address] [address] Care Team Providers Care Warp Coiler Name Role Phone JACEY OTOOLE Primary Care Provider BIJAN MARTE Epic Director [phone] Assessment Encounter Date Assessment Date Assessment LastModified by Organization Details LastModified Time 12/08/2024 12/08/2024 Assessment: Tight ER and A IR. Near full A flexion std. Making steady progress. Plan: Continued PT is recommended at 2x/week for 6 weeks to decrease pain, improve ROM, increase strength, and optimize shoulder mechanics for functional ADL's. [email or web address] Not available 12/08/2024 14:07:32 Plan of Treatment Reminders Order Date Submit Date Provider Last Modified By Organization Details Last Modified Time Details Appointments PT FOLLOW-U P 2024 04:00P M Usama Argueta, MAPPING SPECIALIST Not available Not available Not available PT FOLLOW-U P 2024 09:00A M Usama Argueta, MAPPING SPECIALIST Not available Not available Not available POST OP 15 2024 11:00A M Brad Otto MD Not available Not available Not available PT FOLLOW-U P 2024 10:00A M Delmer Mena, PT Not available Not available Not available PT FOLLOW-U P 2024 10:00A M Delmer Mena, PT Not available Not available Not available PT FOLLOW-U P 2024 08:30A M Delmer Mena, PT Not available Not available Not available PT FOLLOW-U P 2024 03:00P M Usama Scafuri, MAPPING SPECIALIST Not available Not available Not available PT FOLLOW-U P 2024 11:00A M Usama Ellie, MAPPING SPECIALIST Not available Not available Not available RECHECK 15 2024 11:30A M Demario Morales MD Not available Not available Not available Lab None recorded . Referral None recorded . Procedures None recorded . Surgeries None recorded . Imaging None recorded . Medication Orders None recorded . Patient TargetsNo targets recorded. Patient InstructionsNo instructions recorded. Reason for Referral None Reported. Results Created Date Observation Date Name Description Value Unit Range Abnormal Flag Note LastModifiedBy Organization Detail LastModifiedTime 12/09/1912/09/2024 XR, ankle , 2 view [email or web address] ?Encry pted=s hAaTro YD8dLq bEUv6g %2BXZw aYqtaq 0bqfl% 2Fg9IQ a4ajBk vP9nXo QUaueC m3YtLR FvZlgJ JJ8mAn HZtai3 [id number] AC0Kqb 3%2BHU aWkKiQ trMwF INTERFACE [facility] [address] [facility] [address], [address], 12/09/2024 14:42:53 12/09/19 25 12/09/2024 XR, ankle , 2 view [email or web address] ?Encry pted=s hAaTro YD8dLq bEUv6g %2BXZw aYqtaq 0bqfl% 2Fg9IQ a4ajBk vP9nXo QUaueC m3YtLR FvZl JJ8mAn HZtai3 5k0970 AC0Kqb 3%2BHU aWkKiQ trMwF INTERFACE [facility] [address] [facility] [address], [place], [address], 12/09/2024 14:42:55 Result Notes None recorded. Problems Name Problem SNOMED Code Status Onset Date Resolution Date Notes Provider Name and Address Organization Details Recorded Time No complaints 948260122 Active Status: 'I'; Not Available [facility] 4 09:17:07 Low back pain 743545322 Active 2015 Problem Code: M54.5; Problem Code Type: ICD-10; Status: 'A'; Not Available [facility] 4 11:58:12 Problem Notes None recorded. Procedures Surgical History Date Name Laterality Status Provider Name and Address Organization Details Recorded Time 5 68192 Therapeutic Exercise (1:1) completed Usama Scafuri, MAPPING SPECIALIST [address], [place], [address], [facility] 12/08/2024 14:01:59 5 28076: Manual therapy completed Usama Argueta, MAPPING SPECIALIST [address], [place], [address], [facility] 12/08/2024 14:01:59 4 97294 Therapeutic Exercise (1:1) completed Usama Delcidri, MAPPING SPECIALIST [address], [place], [address], [facility] 11/23/2024 09:55:09 4 77565: Manual therapy completed Usama Argueta, MAPPING SPECIALIST [address], [place], [address], [facility] 11/23/2024 09:55:09 4 31598 Therapeutic Exercise (1:1) completed Usama Delcidri, MAPPING SPECIALIST [address], [place], [address], [facility] 11/19/2024 11:13:45 4 33630: Manual therapy completed Usama Strongfuri, MAPPING SPECIALIST [address], [place], [address], [facility] 11/19/2024 11:13:53 4 59801 Therapeutic Exercise (1:1) completed Delmer Mena, PT [address], [place], [address], [facility] 11/11/2024 12:17:25 4 98859: Low complexity PT Eval completed Delmer Mena, PT [address], [place], [address], [facility] 11/11/2024 12:17:29 4 Sports Shoulder completed Jacey Villegas PA-C [address], [place], [address], [facility] 06/23/2024 09:58:25 4 38893 Therapeutic Exercise (1:1) completed Usama Scafuri, MAPPING SPECIALIST [address], [place], [address], [facility] 03/24/2024 12:40:26 4 56945: Manual therapy completed Usama Ligiafuri, MAPPING SPECIALIST [address], [place], [address], [facility] 03/24/2024 12:40:26 4 14926 Therapeutic Exercise (1:1) completed Usama Scafuri, MAPPING SPECIALIST [address], [place], [address], [facility] 03/03/2024 12:23:20 4 82034: Manual therapy completed Usama Ligiafuri, MAPPING SPECIALIST [address], [place], [address], [facility] 03/03/2024 12:23:20 4 12899 Therapeutic Exercise (1:1) completed Usama Scafuri, MAPPING SPECIALIST [address], [place], [address], [facility] 02/20/2024 13:36:34 4 61569: Manual therapy completed Usama Scafuri, MAPPING SPECIALIST [address], [place], [address], [facility] 02/20/2024 13:36:38 Imaging Results None recorded. Procedure Notes None recorded. Medical Equipment None Reported. Allergies No known drug allergies Medications Name Sig Start Date Stop Date Status Note LastModified by Organization Details LastModified Time Vitamin B-2 100 mg tablet TAKE 2 TABLETS BY MOUTH TWICE DAILY active Not Available Not Available No t Available butalbital- acetaminoph en-caffeine 50 mg-325 mg-40 mg capsule TAKE 1 CAPSULE BY MOUTH EVERY 4 HOURS NEEDED FOR PAIN 10/13 completed Not Available Not Available Not Available atorvastati n 10 mg tablet TAKE 1 TABLET BY MOUTH DAILY active Not Available Not Available No t Available azithromyci n 250 mg tablet 10/13 completed Not Available Not Available Not Available [...] Not Available Not Available No t Available propranolol ER 60 mg capsule,24 hr,extended release TAKE 1 CAPSULE BY MOUTH DAILY 03/04 completed Not Available Not Available Not Available dextroamphe tamine-amph etamine 12.5 mg tablet TAKE 1 TABLET BY MOUTH DAILY 10/13 completed Not Available Not Available Not Available ciprofloxac in 500 mg tablet TAKE 1 TABLET BY MOUTH EVERY 12 HOURS FOR 10 DAYS 03/04 completed Not Available Not Available Not Available [...] BY MISCELLAN EOUS ROUTE ONCE PER WEEK 10/13 completed Not Available Not Available Not Available [...] Not Available Not Available No t Available hydrocortis one 2.5 % topical cream APPLY TO FACE TWICE DAILY NEEDED PRURITIS. DECREASE TO EVERY DAY / EVERY OTHER DAY SYMPTOMS IMPROVE active Not Available Not Available No t Available montelukast 10 mg tablet TAKE 1 TABLET BY MOUTH EVERY DAY active Not Available Not Available No t Available testosteron e cypionate 200 mg/mL intramuscul ar oil INJECT 0.5 ML INTO MUSCLE EVERY 7 DAYS active Not Available Not Available No t Available fluticasone propionate 50 mcg/actuati on nasal spray,suspe nsion SHAKE LIQUID AND USE 2 SPRAYS IN EACH NOSTRIL DAILY active Not Available Not Available No t Available carbamazepi ne carBAMaze pine 200MG Tablet 02/28 completed Statu s: 'Disc ontin ued'; Not Available Not Available Not Available Suboxone Suboxone 2-0.5MG Film 2021 active Statu s: 'Curr ent'; Not Available Not Available Not Available oxycodone 10 mg tablet TAKE 1 TABLET BY MOUTH EVERY 4 TO 6 HOURS FOR 5 DAYS NEEDED FOR POST OPERATIVE PAIN active Not Available Not Available No t Available oxycodone HCl-oxycodo ne-ASA four times a day 1 tab [address] PA[address] NOT DRIVE WHILE ON THIS MEDICATIO N 03/04 completed Statu s: 'Curr ent'; Not Available Not Available Not Available butalbital- [...] Not Available Not Available No t Available naloxone 4 mg/actuatio n nasal spray SPRAY 1 DOSE INTO ONE NOSTRIL EVERY 2 MINUTES NEEDED FOR OPIOID OVERDOSE. ALTERNATE NOSTRILS WITH EACH DOSE UNTIL HELP ARRIVES 03/04 completed Not Available Not Available Not Available Ajovy Syringe 225 mg/1.5 mL subcutaneou s INJECT 1.5 ML SUBCUTANE OUSLY ONCE A MONTH active Not Available Not Available No t Available Vitals None Recorded Social History None recorded. Functional Status None recorded. Mental Status None recorded. Family History Nothing Reported. Medical History Condition Response Allergies/Hayfever N Coronary Artery Disease N Anxiety/Depression N Breathing or lung disorders N Emphysema N Nerve Disorders N Thyroid Problems N COPD N Pacemaker N Anemia N Kidney/Bladder Problems N Vascular Disease N Heart Trouble N Heart Attack ([place]) N Gastrointestinal Disease N Cholesterol Y Diabetes N Autoimmune disease N Bleeding Disorder N Inflammatory Joint disease N Orthotics N Arthritis N Seizures/Epilepsy N Blood Clot N AIDS/HIV N Congestive Heart Failure (CHF) N Acid Reflux (GERD) N Cancer N Stroke N Asthma N Circulation Problems N Peripheral Vascular Disease N Sleep Apnea N Hepatitis N Heart Disease N Rheumatoid Arthritis N Arrhythmia N Pulmonary Embolism N Headaches N Fibromyalgia N Hypertension Y Osteoporosis N Past Encounters Encounter ID Performer Location Encounter Start Date Encounter Closed Date Diagnosis/Indication Diagnosis SNOMED-CT Code Diagnosis ICD10 Code Diagnosis Note [id number] Delmer Mena, PT [facility] [address] [place] [address] 11/11/2024 11:34:16 11/11/2024 12:10:11 Impingement syndrome of left shoulder region [id number] 44531 M75.42 [id number] Delmer Mena, PT [facility] [address] [place] [address] 11/19/2024 07:37:32 11/19/2024 09:55:23 Impingement syndrome of left shoulder region [id number] 59771 M75.42 [id number] Delmer Mena PT [facility] [address] [place] [address] 11/23/2024 08:35:15 11/23/2024 09:44:12 Impingement syndrome of left shoulder region [id number] 61358 M75.42 [id number] Delmer Mena PT [facility] [address] [place] [address] 12/08/2024 12:36:24 12/08/2024 12:50:15 Impingement syndrome of left shoulder region [id number] 18469 M75.42 Health Concerns Section Related Observation LastModified by Organization Detai ls LastModified Time None Recorded Concern Status LastModified by Organization Details LastModified Time None Recorded Payers Encounter Date Sequence Insurance Name Policy Number Policy Parekh Covered Member ID Parekh Member ID Guarantor Name 12/08/2024 1 [place] [facility] Bib Ellis [id number] Bib Ellis Notes Date Note Type Note Provider Name and Address Organization Details Recorded Time 12/08/2024 text/html Pt reports 3/10 pain. Feels more tight than sore. Usama Argueta, MAPPING SPECIALIST [address], [place], [address], [facility] 12/08/2024 14:09:13
--- OUTSIDE RECORDS SUMMARY | 2024-12-13 09:15 | XMS_ITS | Continuity of Care Document ---
Author Organization [facility], [facility] Address [address] [address] Care Team Providers Care Piping Manager Name Role Phone MESHAROCÍO JACEY Primary Care Provider BIJAN MARTE Front End Developer [phone] Assessment Encounter Date Assessment Date Assessment LastModified by Organization Details LastModified Time 11/19/2024 11/19/2024 Assessment: Good early ROM. Tightest in ER Plan: Continued PT is recommended at 2x/week for 6 weeks to decrease pain, improve ROM, increase strength, and optimize shoulder mechanics for functional ADL's. [email or web address] Not available 11/19/2024 11:16:37 Plan of Treatment Reminders Order Date Submit Date Provider Last Modified By Organization Details Last Modified Time Details Appointments PT FOLLOW-U P 2024 04:00P M Usama Argueta, VENDOR SPECIALIST Not available Not available Not available PT FOLLOW-U P 2024 09:00A M Usama Argueta, VENDOR SPECIALIST Not available Not available Not available [...] PT FOLLOW-U P 2024 03:00P M Usama Argueta, VENDOR SPECIALIST Not available Not available Not available PT FOLLOW-U P 2024 11:00A M Usama Argueta PTA Not available Not available Not available RECHECK [...] 12/09/1912/09/2024 XR, ankle , 2 view [email or web address] ?Encry pted=s hAaTro YD8dLq bEUv6g %2BXZw aYqtaq 0bqfl% 2Fg9IQ a4ajBk vP9nXo QUaueC m3YtLR FvZlgJ JJ8mAn HZtai3 [id number] AC0Kqb 3%2BHU aWkKiQ trMwF INTERFACE [facility] [address], [address], 12/09/2024 14:42:53 12/09/19 25 12/09/2024 XR, ankle , 2 view [email or web address] ?Encry pted=s hAaTro YD8dLq bEUv6g %2BXZw aYqtaq 0bqfl% 2Fg9IQ a4ajBk vP9nXo QUaueC m3YtLR FvZlg JJ8mAn HZtai3 [id number] AC0Kqb 3%2BHU aWkKiQ trMwF INTERFACE [facility] [address], [place], [address], 12/09/2024 14:42:55 Result Notes None recorded. Problems Name Problem SNOMED Code Status Onset Date Resolution Date Notes Provider Name and Address Organization Details Recorded Time No complaints [id number] Active Status: 'I'; [facility] Available [facility] 4 09:17:07 Low back pain 441754854 Active 2015 Problem Code: M54.5; Problem Code Type: ICD-10; Status: 'A'; Not Available [facility] 4 11:58:12 Problem Notes None recorded. Procedures Surgical History Date Name Laterality Status Provider Name and Address Organization Details Recorded Time 5 78317 Therapeutic Exercise (1:1) completed Usama Scafuri, VENDOR SPECIALIST [address], [place], [address], [facility] 12/08/2024 14:01:59 5 12695: Manual therapy completed Usama Scafuri, VENDOR SPECIALIST [address], [place], [address], [facility] 12/08/2024 14:01:59 4 14496 Therapeutic Exercise (1:1) completed Usama Scafuri, VENDOR SPECIALIST [address], [place], [address], [facility] 11/23/2024 09:55:09 4 49221: Manual therapy completed Usama Scafuri, VENDOR SPECIALIST [address], [place], [address], [facility] 11/23/2024 09:55:09 4 18291 Therapeutic Exercise (1:1) completed Usama Scafuri, VENDOR SPECIALIST [address], [place], [address], [facility] 11/19/2024 11:13:45 4 31236: Manual therapy completed Usama Scafuri, VENDOR SPECIALIST [address], [place], [address], [facility] 11/19/2024 11:13:53 4 58550 Therapeutic Exercise (1:1) completed Delmer Mena, PT [address], [place], [address], [facility] 11/11/2024 12:17:25 4 02201: Low complexity PT Eval completed Delmer Mena, PT [address], [place], [address], [facility] 11/11/2024 12:17:29 4 Sports Shoulder completed Jacey Villegas PA-C [address], [place], [address], [facility] 06/23/2024 09:58:25 4 92681 Therapeutic Exercise (1:1) completed Usama Argueta, VENDOR SPECIALIST [address], [place], [address], [facility] 03/24/2024 12:40:26 4 46496: Manual therapy completed Usama Argueta, VENDOR SPECIALIST [address], [place], [address], [facility] 03/24/2024 12:40:26 4 58414 Therapeutic Exercise (1:1) completed Usama Argueta, VENDOR SPECIALIST [address], [place], [address], [facility] 03/03/2024 12:23:20 4 33069: Manual therapy completed Usama Argueta, VENDOR SPECIALIST [address], [place], [address], [facility] 03/03/2024 12:23:20 4 52728 Therapeutic Exercise (1:1) completed Usama Argueta, VENDOR SPECIALIST [address], [place], [address], [facility] 02/20/2024 13:36:34 4 78123: Manual therapy completed Usama Argueta, VENDOR SPECIALIST [address], [place], [address], [facility] 02/20/2024 13:36:38 Imaging [...] Response Allergies/Hayfever N Coronary Artery Disease N Breathing or lung disorders N Anxiety/Depression N Emphysema N Nerve Disorders N Thyroid Problems N COPD N Pacemaker N Kidney/Bladder Problems N Anemia N Vascular Disease N Heart Trouble N Gastrointestinal Disease N Heart Attack ([place]) N Cholesterol Y Diabetes N Autoimmune disease [...] SNOMED-CT Code Diagnosis ICD10 Code Diagnosis Note [id number] SHARITA Celis [address] floor [address] [place] [address] 10/29/2024 11:06:18 11/30/2024 15:15:56 Inflammation of joint of left shoulder region [id number] 51431 M19.170 [id number] Delmer Mena, PT [facility] [address] [place] [address] 11/11/2024 11:34:16 11/11/2024 12:10:11 Impingement syndrome of left shoulder region [id number] 04183 M75.42 [id number] Delmer Mena, PT [facility] [address] [place] [address] 11/19/2024 07:37:32 11/19/2024 09:55:23 Impingement syndrome of left shoulder region 2143914369 99085 M75.42 Health Concerns Section Related Observation LastModified by Organization Detai ls LastModified Time None Recorded Concern Status LastModified by Organization Details LastModified Time None Recorded Payers None recorded. Notes Date Note Type Note Provider Name and Address Organization Details Recorded Time 11/19/2024 text/html Pt reports 2/10 pain. Feels more tight than sore. Usama Argueta, VENDOR SPECIALIST [address], [place], [address], [facility] 11/19/2024 11:17:35
--- OUTSIDE RECORDS SUMMARY | 2024-12-13 09:15 | XMS_ITS | Continuity of Care Document ---
Author Organization [facility], [facility] 2nd floor Address [address] [place] [address] Care Team Providers Care Automatic Lump Making Machine Tender Name Role Phone JACEY OTOOLE Primary Care Provider BIJAN MARTE Wind Turbine Mechanic [phone] Assessment No assessment recorded. Plan of Treatment Reminders Order Date Submit Date Provider Last Modified By Organization Details Last Modified Time Details Appointments PT FOLLOW-U P 2024 04:00P M Usama Scafuri, CROP ROLLER Not available Not available Not available PT FOLLOW-U P 2024 09:00A M Usama Scafuri, CROP ROLLER Not available Not available Not available POST [...] FOLLOW-U P 2024 03:00P M Usama Scafuri, CROP ROLLER Not available Not available Not available PT FOLLOW-U P 2024 11:00A M Usama Scafuri, CROP ROLLER Not available Not available Not available RECHECK 15 2024 11:30A M Demario Morales MD Not available Not available Not available Lab None recorded . Referral None recorded . Procedures None recorded . Surgeries None recorded . Imaging XR, shoulder , 2 or more view - rm 216 2023 024 [facility] Office, [address], [address], [place], [address], 10/13/2024 11:03:49 Medication Orders None recorded . Patient TargetsNo targets recorded. Patient InstructionsNo instructions recorded. Reason for Referral None Reported. Results Created Date Observation Date Name Description Value Unit Range Abnormal Flag Note LastModifiedBy Organization Detail LastModifiedTime 10/13/2010/13/2024 XR, tye skinner, 2 or more view [email or web address] ?Encry pted=s hAaTro YD8dLq bEUv6g %2BXZw aYqtaq 0bqfl% 2Fg9IQ a4ajBk vP9nXo QUaueC m3YtLR FvZlgJ JJ8mAn HZtai3 8v3701 AC0Kqa HSGWKe lKiQtr MwF INTERFACE [facility] [address], [place], [address], 10/13/2024 11:03:49 10/13/20 24 10/13/2024 XRtye, 2 or more view [email or web address] ?Encry pted=s hAaTro YD8dLq bEUv6g %2BXZw aYqtaq 0bqfl% 2Fg9IQ a4ajBk vP9nXo QUaueC m3YtLR FvZl JJ8mAn HZtai3 6v9713 AC0Kqa HSGWKe lKiQtr MwF INTERFACE [facility] [address], [place], [address], 10/13/2024 11:03:52 12/09/19 25 12/09/2024 XR, ankle , 2 view [email or web address] ?Encry pted=s hAaTro YD8dLq bEUv6g %2BXZw aYqtaq 0bqfl% 2Fg9IQ a4ajBk vP9nXo QUaueC m3YtLR FvZlgJ JJ8mAn HZtai3 9w4020 AC0Kqb 3%2BHU aWkKiQ trMwF INTERFACE [facility] [address], [place], [address], 12/09/2024 14:42:53 12/09/19 25 12/09/2024 XR, ankle , 2 view [email or web address] ?Encry pted=s hAaTro YD8dLq bEUv6g %2BXZw aYqtaq 0bqfl% 2Fg9IQ a4ajBk vP9nXo QUaueC m3YtLR FvZlgJ JJ8mAn HZtai3 7h9148 AC0Kqb 3%2BHU aWkKiQ trMwF INTERFACE [facility] [address], [place], [address], 12/09/2024 14:42:55 Result Notes None recorded. Problems Name Problem SNOMED Code Status Onset Date Resolution Date Notes Provider Name and Address Organization Details Recorded Time No complaints 940400357 Active Status: 'I'; Not Available [facility] 4 09:17:07 Low back pain 310527426 Active 2015 Problem Code: M54.5; Problem Code Type: ICD-10; Status: 'A'; Not Available [facility] 4 11:58:12 Problem Notes None recorded. Procedures Surgical History Date Name Laterality Status Provider Name and Address Organization Details Recorded Time 5 85477 Therapeutic Exercise (1:1) completed Usama Argueta, CROP ROLLER [address], [place], [address], [facility] 12/08/2024 14:01:59 5 92756: Manual therapy completed Usama Argueta, CROP ROLLER [address], [place], [address], [facility] 12/08/2024 14:01:59 4 57730 Therapeutic Exercise (1:1) completed Usama Delcidri, CROP ROLLER [address], [place], [address], [facility] 11/23/2024 09:55:09 4 01763: Manual therapy completed Usama Delcidri, CROP ROLLER [address], [place], [address], [facility] 11/23/2024 09:55:09 4 09850 Therapeutic Exercise (1:1) completed Usama Strongfuri, CROP ROLLER [address], [place], [address], [facility] 11/19/2024 11:13:45 4 11724: Manual therapy completed Usama Delcidri, CROP ROLLER [address], [place], [address], [facility] 11/19/2024 11:13:53 4 19117 Therapeutic Exercise (1:1) completed Delmer Mena, PT [address], [place], [address], [facility] 11/11/2024 12:17:25 4 66260: Low complexity PT Eval completed Delmer Mena, PT [address], [place], [address], [facility] 11/11/2024 12:17:29 4 Sports Shoulder completed Jacey Villegas PA-C [address], [place], [address], [facility] 06/23/2024 09:58:25 4 52724 Therapeutic Exercise (1:1) completed Usama Argueta, CROP ROLLER [address], [place], [address], [facility] 03/24/2024 12:40:26 4 45143: Manual therapy completed Usama Argueta, CROP ROLLER [address], [place], [address], [facility] 03/24/2024 12:40:26 4 82954 Therapeutic Exercise (1:1) completed Usama Argueta, CROP ROLLER [address], [place], [address], [facility] 03/03/2024 12:23:20 4 96550: Manual therapy completed Usama Argueta, CROP ROLLER [address], [place], [address], [facility] 03/03/2024 12:23:20 4 73824 Therapeutic Exercise (1:1) completed Usama Argueta, CROP ROLLER [address], [place], [address], [facility] 02/20/2024 13:36:34 4 28630: Manual therapy completed Usama Argueta, CROP ROLLER [address], [place], [address], [facility] 02/20/2024 13:36:38 Imaging Results None recorded. Procedure [...] height Body mass index (BMI) Body weight Respiratory rate Body temperature Heart rate Oxygen saturation Oxygen saturation in Arterial blood by Pulse oximetry Systolic blood pressure Diastolic blood pressure Provider Name and Address Organization Details Last Updated DateTime 4 167.64 cm 31.2 kg/m2 10299.3 3 g 20 /min 98.9 [degF] 91 /min 97 % 97 % 118 mm[Hg] 82 mm[Hg] Jacey Villegas PA-C [address] [facility] [address], [place], [address] [place], [place] - [facility] 4 10:51:20 Social History None recorded. Functional Status None recorded. Mental Status None recorded. Family History Nothing Reported. Medical History Condition Response Allergies/Hayfever N Coronary Artery Disease N Anxiety/Depression N Breathing or lung disorders N Emphysema N Nerve Disorders N Thyroid Problems N COPD N Pacemaker N Anemia N Kidney/Bladder Problems N Vascular Disease N Heart Trouble N Heart Attack (OK) N Gastrointestinal Disease N Cholesterol Y Diabetes [...] SNOMED-CT Code Diagnosis ICD10 Code Diagnosis Note [id number] SHARITA Celis 2nd floor [address] [place] [address] 10/13/2024 10:37:36 11/12/2024 11:53:11 Pain of right shoulder region 5488574482 M25.511 Inflammati on of joint of left shoulder region 5779715215 01684 M19.012 Health Concerns Section Related Observation LastModified by Organization Detai ls LastModified Time None Recorded Concern Status LastModified by Organization Details LastModified Time None Recorded Payers None recorded. Notes Date Note Type Note Provider Name and Address Organization Details Recorded Time 4 text/html HISTORY AND PHYSICALPatient date of : 1980Admitting diagnosis: Left shoulder pain, recurrent impingement, glenohumeral osteoarthritisPlannned procedure: Revision left shoulder surgery with SAD and intra-articular debridement extensiveSurgeon: Dr. OttoHisgarrett of present illness: This patient is a 44-year-old male status post work injury to his left shoulder. He has had multiple surgeries and ongoing issues. Is now admitted for revision shoulder surgery.Past medical history: Patient with history of frequent headaches, arthritis, hiatal cholesterol and hypertension. Also history of asthma, anxiety, depression and drug dependency.Review of systems: Constitutional: Denies fatigue, fever, weight loss. General health status is good. Eyes: Denies blurred vision and double vision.ENT: Denies hearing loss and tinnitus, hoarseness, difficulty swallowing. Respiratory: denies cough, hemoptysis, shortness of breath or wheezing.GI: Denies abdominal pain, loss of appetite, change in bowel habits, constipation, diarrhea, bloody stools.: Denies difficulty voiding, burning with urination.Skin: No lumps, rashes, sores or ulcers. Neuro: Denies vertigo, memory loss or lapses. Psychiatric: Denies anxiety, hallucinations, sleep alteration from usual.Endocrine: Denies increased appetite, hair loss, excessive thirst. Hematologic: Denies anemia, enlarged lymph nodes. Immunologic: Denies frequent colds, or frequent infections or itching.Medications: Adderall, Advair, atorvastatin, butalbital, testosterone, dextroamphetamine, fluticasone, hydrocortisone cream, lisinopril, magnesium oxide, triamcinolone, meloxicam, metoprolol, montelukast, sumatriptan, vitamin B2 and he is on Suboxone daily which he will continue to use.Allergies: NKDAPast surgical history: Bilateral shoulder surgeries including biceps tendon repair left shoulderSocial history: Alcohol consumption: Negative, Smoker: Negative, Street drug use: Negative.Vital signs: Stable Height 5 feet 6 inches, Weight 193 pounds, BP 118/82, Temp 98.9, Pulse 91, Resp 20PHYSICAL EXAMINATION: The patient is well appearing and in no apparent distress. Alert and oriented x3. Gait is symmetric.HEENT: BenignChest: Clear to auscultation bilaterallyHeart: Regular rate and rhythm, no murmurs or gallopsAbdomen: Soft and nontender, no massesNeurovascular: Within normal limitsSkin: Within normal limitsPertinent extremity exam: Left shoulder exam is notable for normal contour. No atrophy or deformities found. Previous incisions all well-healed. Elbow, wrist and hand move well with intact appraisal manager strength. Both upper extremities are neurovascularly intact. There is intact strength to resisted rotator cuff strength testing of the rotator cuff but pain is reproduced. Provocative impingement maneuvers are positive. Biceps specific tests including Yergason's and Rowan's test are positive. radiographic exam: 4 views of the left shoulder were obtained and reviewed in the office today. These are notable for some moderate advanced glenohumeral arthritis. Evidence of previous surgery with some residual arthritic change of the distal clavicle and AC joint. No metallic hardware. DIAGNOSIS: Recurrent left shoulder painPLAN: Patient is admitted at this time for revision shoulder surgery with decompression and intra-articular debridement. Rationale for this discussed as well as outcome expectations. He consents to surgery and wishes to move forward. Detailed discussion regarding the patient? s pathoanatomy and treatment options conducted. The risks and benefits, potential complications including but not limited to failure to alleviate all pain, need for further surgery, infection, need for hardware implantation, stiffness, bleeding, neurovascular injury discussed in detail. I advised the patient that symptom resolution after this procedure is often protracted, and may be incomplete. I explained that, as an end result, permanent functional limitations may be recommended. All questions have been answered to their satisfaction, and I believe the patient has made an informed decision to proceed with surgery. Jacey Villegas PA-C [address] [facility] [address], [place], [address], [place] - [facility] 10/13/2024 13:02:07
--- OUTSIDE RECORDS SUMMARY | 2024-12-13 09:15 | XMS_ITS | Continuity of Care Document ---
Author Organization [facility] Clinical Address [address] [place] [address] Care Team Providers Care Intelligent Systems Engineer Name Role Phone MESHAROCÍO JACEY Primary Care Provider BIJAN MARTE Die Attaching Machine Tender [phone] Assessment Encounter Date Assessment Date Assessment LastModified by Organization Details LastModified Time 12/09/2024 12/09/2024 ICD-10: Left non-insertional nodular Achilles tendinosis, gastrocnemius contracture CHIEF COMPLAINT: Left Achilles pain HPI: Bib is a very pleasant 44-year-old gentleman seen today as a new patient who has experienced chronic left Achilles pain dating back to the spring when he aggravated his left Achilles tendon while running to get his child's inhaler. He denies any specific injury. Pain is localized to the Achilles tendon midsubstance. He has had an MRI. He has been doing physical therapy for his bilateral shoulders status post multiple shoulder surgeries and is currently out of work because of a work-related shoulder injury. 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 He has not been immobilized and has not tried any stretching or physical therapy for his left Achilles. His pain level is 4/10. His pain is worse in the morning and as the day goes on. He denies any pain elsewhere about his foot or ankle. Past family, medical, social history and review of systems has been reviewed, updated and signed by me and is located in the patient? s chart. He has a history of multiple shoulder surgeries and is in need of a shoulder replacement surgery. He is also status post previous distal biceps repair. PHYSICAL EXAM: General: healthy appearing, in no acute distress Psych: alert and oriented x3, normal mood Skin: intact without ulceration or lesion, normal turgor Lungs: respirations unlabored Cardiac: heart rate regular, normal peripheral pulses Musculoskeletal: His gait is mildly antalgic on the left. He has normal standing foot and ankle alignment. On seated exam, he is tender over the Achilles tendon midsubstance where there is thickening and nodularity. The Achilles is intact with normal Wolfe test. He has a gastrocnemius contracture. There is no tenderness about the plantar fascial origin or the Achilles insertion. There is no pain with maximal ankle plantarflexion or any posterior ankle joint line tenderness. He is distally neurovascularly intact. X-RAYS: Single lateral weightbearing x-ray of the left ankle was ordered, obtained and independently reviewed by me today at [facility], demonstrating normal alignment without fracture. There is an os trigonum and some thickening of the Achilles tendon at the mid substance. There is preservation of Kager's triangle. His left ankle MRI images from 11/08/2024 were independently reviewed, demonstrating thickening of the Achilles tendon midsubstance with a small area of partial thickness interstitial tearing centrally, small os trigonum with surrounding edema, no evidence of Achilles tendon rupture, fracture or arthritis. IMPRESSION: Left non-insertional nodular Achilles tendinosis, gastrocnemius contracture PLAN: I discussed these findings with Bib. I believe he has chronic nodular non-insertional Achilles tendinosis in the setting of gastrocnemius contracture. I have recommended maximizing conservative treatment. The patient also avoid any additional surgery as he is artery had multiple previous shoulder surgeries. I have recommended calf and hamstring stretching exercises as well as a course of physical therapy focusing on stretching exercises and an eccentric exercise program. I splinted the association between gastrotomy was contracture and Achilles tendinosis. I offered him a brace or CAM boot and he declined these modalities at this time. He will follow up with me in 2 months to ensure that he is improving. If he fails to improve and conservative measures fail, we may consider surgery in the form of left gastrocnemius recession. I discussed with him today. All questions were answered. He understands and agrees with this plan. [email or web address] Not available 12/09/2024 15:43:57 Plan of Treatment Reminders Order Date Submit Date Provider Last Modified By Organization Details Last Modified Time Details Appointments PT FOLLOW-UP 2024 04:00P Jairo Strongfuri, [employer] Not available Not available Not available PT FOLLOW-UP 2024 09:00A M Usama Delcidri, [employer]INE SUB[employer]SEMBLER Not available Not available Not available POST OP 15 2024 11:00A M Brad Otto MD Not available Not available Not available PT FOLLOW-UP 2024 10:00A M Delmer Mena, PT Not available Not available Not available PT FOLLOW-UP 2024 10:00A M Delmer Mena, PT Not available Not available Not available PT FOLLOW-UP 2024 08:30A M Delmer Mena, PT Not available Not available Not available PT FOLLOW-UP 2024 03:00P M Usama Delcidri, [employer]ER Not available Not available Not available PT FOLLOW-UP 2024 11:00A M Usama Delcidri, [employer]INE [employer]SEMBLER Not available Not available Not available RECHECK 15 2024 11:30A M Demario Morales MD Not available Not available Not available Lab None recorded. Referral physical therapist referral 2024 025 [email or web address] Not available 12/09/2024 15:27:15 Procedures None recorded. Surgeries None recorded. Imaging XR, ankle, 2 view - RM 5-- LATERAL LEFT ANKLE WB 2024 025 [email or web address] [facility], [address] [facility], [facility] [address], [place], [address], 12/09/2024 15:27:15 Medication Orders None recorded. Patient TargetsNo targets recorded. Patient InstructionsNo instructions recorded. Reason for Referral Physical Therapist Referral for Left Achilles tendinitis Referring Physician: Demario Morales, Orthopedic Surgery, Encounter Date: 12/09/2024 Results Created Date Observation Date Name Description Value Unit Range Abnormal Flag Note LastModifiedBy Organization Detail LastModifiedTime 12/09/1912/09/2024 XR, ankle , 2 view [email or web address] ?Encry pted=s hAaTro YD8dLq bEUv6g %2BXZw aYqtaq 0bqfl% 2Fg9IQ a4ajBk vP9nXo QUaueC m3YtLR FvZlgJ JJ8mAn HZtai3 1s3190 AC0Kqb 3%2BHU aWkKiQ trMwF INTERFACE [facility] [address], [place], [address], 12/09/2024 14:42:53 12/09/19 25 12/09/2024 XR, ankle , 2 view [email or web address] ?Encry pted=s hAaTro YD8dLq bEUv6g %2BXZw aYqtaq 0bqfl% 2Fg9IQ a4ajBk vP9nXo QUaueC m3YtLR FvZlgJ JJ8mAn HZtai3 3c6681 AC0Kqb 3%2BHU aWkKiQ trMwF INTERFACE [facility] [address], [place], [address], 12/09/2024 14:42:55 Result Notes None recorded. Problems Name Problem SNOMED Code Status Onset Date Resolution Date Notes Provider Name and Address Organization Details Recorded Time No complaints 650884711 Active Status: 'I'; Not Available [facility] 4 09:17:07 Low back pain 733619181 Active 2015 Problem Code: M54.5; Problem Code Type: ICD-10; Status: 'A'; Not Available [facility] 4 11:58:12 Problem Notes None recorded. Procedures Surgical History Date Name Laterality Status Provider Name and Address Organization Details Recorded Time 5 10627 Therapeutic Exercise (1:1) completed Usama Argueta, [employer]INE [employer]SEMBLER [address], [place], [address], [facility] 12/08/2024 14:01:59 5 56082: Manual therapy completed Usama Argueta, [employer]INE [employer]SEMBLER [address], [place], [address], [facility] 12/08/2024 14:01:59 4 24046 Therapeutic Exercise (1:1) completed Usama Scafuri, [employer]INE [employer]SEMBLER [address], [place], [address], [facility] 11/23/2024 09:55:09 4 27304: Manual therapy completed Usama Delcidri, [employer]SEM[employer]ER [address], [place], [address], [facility] 11/23/2024 09:55:09 4 71926 Therapeutic Exercise (1:1) completed Usamatonya Strongfuri, [employer]INE [employer]SEMBLER [address], [place], [address], [facility] 11/19/2024 11:13:45 4 50846: Manual therapy completed Usama Delcidri, [employer]ER [address], [place], [address], [facility] 11/19/2024 11:13:53 4 35262 Therapeutic Exercise (1:1) completed Delmer Mena, PT [address], [place], [address], [facility] 11/11/2024 12:17:25 4 79652: Low complexity PT Eval completed Delmer Mena, PT [address], [place], [address], [facility] 11/11/2024 12:17:29 4 Sports Shoulder completed Jacey Villegas PA-C [address], [place], [address], [facility] 06/23/2024 09:58:25 4 14223 Therapeutic Exercise (1:1) completed Usama Delcidri, [employer]ER [address], [place], [address], [facility] 03/24/2024 12:40:26 4 31326: Manual therapy completed Usama Strongfuri, [employer]INE [employer]ER [address], [place], [address], [facility] 03/24/2024 12:40:26 4 89286 Therapeutic Exercise (1:1) completed Usama Argueta, [employer]INE [employer]ER [address], [place], [address], [facility] 03/03/2024 12:23:20 4 78327: Manual therapy completed Usama Argueta, [employer]INE [employer]ER [address], [place], [address], [facility] 03/03/2024 12:23:20 4 52604 Therapeutic Exercise (1:1) completed Usama Argueta, [employer]INE [employer]SEMBLER [address], [place], [address], [facility] 02/20/2024 13:36:34 4 87744: Manual therapy completed Usama Argueta, [employer]URBINE SUBASSEMBLER [address], [place], [address], [facility] 02/20/2024 13:36:38 Imaging Results None recorded. [...] and Address Organization Details Last Updated DateTime 12/09/2024 167.64 cm 31.2 kg/m2 56842.33 g MILI [facility] 12/09/2024 14:48:10 Social History None recorded. Functional Status None [...] SNOMED-CT Code Diagnosis ICD10 Code Diagnosis Note [id number] Delmer Mena, PT [facility] [address] [place] [address] 11/11/2024 11:34:16 11/11/2024 12:10:11 Impingement syndrome of left shoulder region 5981790230 15494 M75.42 [id number] Delmer Rajesh, PT [facility] [address] [place] [address] 11/19/2024 07:37:32 11/19/2024 09:55:23 Impingement syndrome of left shoulder region 1018371124 67524 M75.42 [id number] Delmer Mena, PT [facility] [address] [place] [address] 11/23/2024 08:35:15 11/23/2024 09:44:12 Impingement syndrome of left shoulder region 4008840838 09965 M75.42 [id number] Delmer Mena, PT N[facility] - [facility] [address] [place] [address] 12/08/2024 12:36:24 12/08/2024 12:50:15 Impingement syndrome of left shoulder region 1619388502 93234 M75.42 [id number] MD NAN Sanchez [address] [place] [address] 12/09/2024 14:35:45 12/09/2024 15:44:53 Ankle pain 687168765 M25.572 Left Achil les tendinitis 0349257599 07093 M76.62 Disorder o f Achilles tendon 584721915 M67.88 Tightness of left gastrocnemius muscle 5475906813 4235623 M62.89 Health Concerns Section Related Observation LastModified by Organization Detai ls LastModified Time None Recorded Concern Status LastModified by Organization Details LastModified Time None Recorded Payers Encounter Date Sequence Insurance Name Policy Number Policy Parekh Covered Member ID Parekh Member ID Guarantor Name 12/09/2024 1 [place] [facility] Bib Ellis [id number] Bib Ellis
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
--- OUTSIDE RECORDS SUMMARY | 2024-12-13 09:16 | XMS_ITS | Continuity of Care Document ---
Author Organization [facility], [facility] Address [address] [place] [address] [place] [address] Assessment No assessment recorded. Plan of Treatment Reminders Order Date Submit Date Provider Last Modified By Organization Details Last Modified Time Details Appointments ANNUAL EXAM 2024 12:00P M DR OTOOLE Not available Not available Not available Lab None recorded . Referral None recorded . Procedures None recorded . Surgeries None recorded . Imaging XR, ankle, 3 or more view 2023 024 [facility], [facility] [place], [address], 10/15/2024 17:18:19 Medication Orders None recorded . Patient TargetsNo targets recorded. Patient Instructions Encounter Date Encounter Id Patient Instructions Last Modified By Organization Details Last Modified Time 10/05/2024 [id number] pulse oximetry* Not available 10/05/2024 21:30:08 learning about asthma Not available 10/05/2024 21:30:08 Reason for Referral None Reported. Results Created Date Observation Date Name Description Value Unit Range Abnormal Flag Note LastModifiedBy Organization Detail LastModifiedTime 10/05/2010/05/2024 pulse oxime try* Result 97% Room Air Not Available [facility] [address], [place], [address], 10/04/2024 16:06:19 10/15/20 24 10/15/2024 XR, ankle [...] and Address Organization Details Recorded Time Asthma 605405378 [facility] 12:20:05 Hyperchol esterolem ia 81182211 Active 2018 Abhishek Otoole DO [address] [place] [address], [id number], [facility] [place] [facility] 9 11:33:43 Seasonal allergic rhinitis 434020685 Active 2021 Abhishek Otoole DO [address] [place] [address], [phone], [facility] [place] [facility] 2 10:53:21 Tachycard ia 3775829 Active 2022 Abhishek Otoole DO [address] [place] [address], [phone], [facility] [place] [facility] 3 12:41:55 Hypertens jorgito disorder 77425443 Active 2022 Abhishek Otoole DO [address] [place] [address], [phone], [facility] [place] [facility] 3 12:43:12 Bilateral hip joint pain 734229297756 31086 Active 2022 Abhishek Otoole DO [address] [place] [address], [phone], [facility] [place] [facility] 3 22:16:28 Family history of malignant melanoma 226856434 Active 2022 Abhishek Otoole DO [address] [place] [address], [phone], [facility] [place] [facility] 3 11:16:02 Cough 45140657 Active 2022 Abhishek Otoole DO [address] [place] [address], [phone], [facility] [place] [facility] 3 16:03:38 Right lower quadrant pain 414761418 Active 2023 Abhishek Otoole, DO [address] [place] [address], [address], [facility] [place] [facility] 4 14:39:38 Acute epididymi tis 70422537 Active 2023 Abhishek Gina Jeannette, DO [address] [place] [address], [phone], [facility] [place] [facility] 4 14:43:23 Fatigue 20211267 Active 2023 Abhishek Otoole, DO [address] [place] [address], [address], [facility] [place] [facility] 4 10:23:21 Achilles tendiniti s 59894893 Active 2023 Abhishek Otoole, DO [address] [place] [address], [phone], [facility] [place] [facility] 4 10:24:21 Achilles tendiniti s 98232663 Active 2023 Abhishek Otoole, DO [address] [place] [address], [address], [facility] [place] [facility] 4 10:24:23 Serum ferritin above reference range 482666380 Active 2023 Abhishek Otoole, DO [address] [place] [address], [address], [facility] [place] [facility] 4 21:31:58 Hypotesto steronism 382076156890 4 Active 2023 Abhishek Otoole, DO [address] [place] [address], [address], [facility] [place] [facility] 4 22:57:20 Pain of left ankle joint 661530340250 69323 Active 2023 CARLEY ALEJANDRE [address] [place] [address], [address], [facility] [place] [facility] 4 10:30:14 Os trigonum impingeme nt 147495473 Active 2023 CARLEY ALEJANDRE [address] [place], [address], [facility] 4 12:24:54 Notes:herniated disc- Dr. [...] Last Updated DateTime 167.64 cm 32.8 kg/m2 97593.2 5 g 100 /min 97 % 97 % 120 mm[Hg] 78 mm[Hg] Kathie [facility] 4 15:38:29 Social History Question Answer Notes LastModified by Organizat ion Details LastModified Time Tobacco Smoking Status Never Smoker Krystina [facility] 03/20/2018 15:47:21 What Was [...] preservative 9 completed Not Available [facility] 11/07/2023 11:38:52 Influenza, split virus, quadrivalent, preservative 0 completed Not Available [facility] 11/07/2023 11:38:52 Past Encounters Encounter ID Performer Location Encounter Start Date Encounter Closed Date Diagnosis/Indication Diagnosis SNOMED-CT Code Diagnosis ICD10 Code Diagnosis Note [id number] CARLEY ALEJANDRE [facility] [address] [place] [address] 10/05/2024 15:33:38 10/05/2024 16:38:31 Achilles tendinitis 27746150 M76.62 will start with XR Asthma 665978475 J45.90 9 relates that he is using albut inhaler about twice a week Depression screening 171 770688 Z13.31 Neg Screening Health Concerns Section Related Observation LastModified by Organization Detai ls LastModified Time None Recorded Concern Status LastModified by Organization Details LastModified Time None Recorded Payers Encounter Date Sequence Insurance Name Policy Number Policy Parekh Covered Member ID Parekh Member ID Guarantor Name 10/05/2024 1 [place] [facility] Bib Ellis [id number] Bib Ellis Notes Date Note Type Note Provider Name a nd Address Organization Details Recorded Time 10/05/2024 text/html f/u achilles tendinitis left achilles tendinitis: no improvement with bracing and anti-inflammatoryt he patient has inflammation and build uppossible scar tissue vs enthesopathy vs tear recommended fu XR and MRIneed XR first tenderness to palpation at insertion point patient agrees CARLEY ALEJANDRE [address], [place], [address], [facility] 10/05/2024 16:12:03
== END 2024-12-13 10:05 | disposition home or self-care (01) ==
PROVIDERS: PCP Internal Medicine; Visit Provider Nurse Practitioner Psychiatric/Mental Health
DX: F11.21 Opioid dependence, in remission (principal)
CPT/HCPCS: 99213

== ENCOUNTER 2025-04-05 10:59 | Outpatient (AMB) | payer MEDICAID, SELFPAY ==
[2025-04-05 11:06] VITALS: BP 140/86; PULSE 107; O2SAT 95; BMI 32.3
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
--- OUTSIDE RECORDS SUMMARY | 2025-04-05 12:44 | XMS_ITS | Continuity of Care Document ---
Author Organization [facility], [address] [address] floor Address [address] [place] [address] Care Team Providers Care Foundry Worker Apprentice Name Role Phone JACEY OTOOLE Referring Provider [phone] JACEY OTOOLE Primary Care Provider BIJAN MARTE Avionics Engineer [phone] Assessment Encounter Date Assessment Date Assessment LastModified by Organization Details LastModified Time 03/31/2025 03/31/2025 Dx:bilateral rotator cuff distribution pain, refractory, left shoulder arthritis Interval History:the patient returns, no change in pain level or functional stattus. SocHx: nonsmoker, nondrinker Past Medical/Surgical History/Meds/Allerg ies reviewed and charted ROS: negative Physical Exam: afebrile, vital signs stable, in no apparent distress, oriented to person/place/time. Gait symmetric. Skin intact without erythema. Heart RRR Lungs: clear Abdomen soft, nontender. bilateralSHOULDER: no redness, warmth, deformity. Range of motion 70%full in all planes with pain throughout the arc of motion. Strength 5/5 all muscle groups. Apprehension negative. Impingement sign negative. Acromioclavicular joint nontender without irritability with cross body adduction. Neurovascular Exam wnl. New Studies: none Impression:bilatera l shoulder pain Plan: 1.both sides injected with corticosteroid, stretching advised, the patient is essentially at MMI, remains disabled from March.follow-u p 6 weeks [facility] speech recognition burrito maker software was used to create portions of this document. An attempt at proofreading has been made to minimize errors. Please call for corrections. [email or web address] Not available 03/31/2025 14:51:18 Plan of Treatment Reminders Order Date Submit Date Provider Last Modified By Organization Details Last Modified Time Details Appointments RECHECK 15 2024 08:30A M Demario Morales MD Not available Not available Not available DO NOT BOOK 2024 12:00P M Brad Otto MD Not available Not available Not available Lab None recorded . Referral None recorded . Procedures None recorded . Surgeries None recorded . Imaging None recorded . Medication Orders None recorded . Patient TargetsNo targets recorded. Patient InstructionsNo instructions recorded. Reason for Referral None Reported. 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 Procedures Surgical History Date Name Laterality Status Provider Name and Address Organization Details Recorded Time 5 79899 Therapeutic Exercise (1:1) cancelled Delmer Mena, PT [address], [place], [address], [facility] 01/24/2025 12:27:15 5 04745: Manual therapy cancelled Delmer Mena, PT [address], [place], [address], [facility] 01/24/2025 12:27:15 5 60350 Therapeutic Exercise (1:1) completed Usama Argueta, HYDROELECTRIC STATION OPERATOR CHIEF [address], [place], [address], [facility] 01/11/2025 12:08:10 5 87536: Manual therapy completed Usama Argueta, HYDROELECTRIC STATION OPERATOR CHIEF [address], [place], [address], [facility] 01/11/2025 12:08:10 5 86343 Therapeutic Exercise (1:1) cancelled Herijamarcus Ojedae, HYDROELECTRIC STATION OPERATOR CHIEF [address], [place], [address], [facility] 01/06/2025 07:56:59 5 45120: Manual therapy cancelled Herijamarcus Clark, HYDROELECTRIC STATION OPERATOR CHIEF [address], [place], [address], [facility] 01/06/2025 07:56:59 5 87388 Therapeutic Exercise (1:1) completed Delmer Mena, PT [address], [place], [address], [facility] 12/29/2024 12:59:55 5 68211: Manual therapy completed Delmer Mena, PT [address], [place], [address], [facility] 12/29/2024 13:00:09 5 89318 Therapeutic Exercise (1:1) completed Delmer Mena, PT [address], [place], [address], [facility] 12/27/2024 13:24:17 5 85255: Low complexity PT Eval completed Delmer Mena, PT [address], [place], [address], [facility] 12/27/2024 13:24:19 5 Sports Shoulder 4&1 completed Brad Otto MD [address], [place], [address], [facility] 12/24/2024 11:34:28 5 82168 Therapeutic Exercise (1:1) completed Usama Argueta, HYDROELECTRIC STATION OPERATOR CHIEF [address], [place], [address], [facility] 12/24/2024 10:35:11 5 76066: Manual therapy completed Usama Scafuri, HYDROELECTRIC STATION OPERATOR CHIEF [address], [place], [address], [facility] 12/24/2024 10:35:11 5 49789 Therapeutic Exercise (1:1) completed Usama Scafuri, HYDROELECTRIC STATION OPERATOR CHIEF [address], [place], [address], [facility] 12/08/2024 14:01:59 5 80054: Manual therapy completed Usama Delcidri, HYDROELECTRIC STATION OPERATOR CHIEF [address], [place], [address], [facility] 12/08/2024 14:01:59 4 46270 Therapeutic Exercise (1:1) completed Usama Strongfuri, HYDROELECTRIC STATION OPERATOR CHIEF [address], [place], [address], [facility] 11/23/2024 09:55:09 4 70972: Manual therapy completed Usama Delcidri, HYDROELECTRIC STATION OPERATOR CHIEF [address], [place], [address], [facility] 11/23/2024 09:55:09 4 59369 Therapeutic Exercise (1:1) completed Usama Delcidri, HYDROELECTRIC STATION OPERATOR CHIEF [address], [place], [address], [facility] 11/19/2024 11:13:45 4 57883: Manual therapy completed Usama Scafuri, HYDROELECTRIC STATION OPERATOR CHIEF [address], [place], [address], [facility] 11/19/2024 11:13:53 4 92426 Therapeutic Exercise (1:1) completed Delmer Mena, PT [address], [place], [address], [facility] 11/11/2024 12:17:25 4 29375: Low complexity PT Eval completed Delmer Mena, PT [address], [place], [address], [facility] 11/11/2024 12:17:29 4 Sports Shoulder completed Jacey Villegas PA-C [address], [place], [address], [facility] 06/23/2024 09:58:25 4 47676 Therapeutic Exercise (1:1) completed Usama Scafuri, HYDROELECTRIC STATION OPERATOR CHIEF [address], [place], [address], [facility] 03/24/2024 12:40:26 4 56786: Manual therapy completed Usama Scafuri, HYDROELECTRIC STATION OPERATOR CHIEF [address], [place], [address], [facility] 03/24/2024 12:40:26 4 99671 Therapeutic Exercise (1:1) completed Usama Scafuri, HYDROELECTRIC STATION OPERATOR CHIEF [address], [place], [address], [facility] 03/03/2024 12:23:20 4 12258: Manual therapy completed Usama Scafuri, HYDROELECTRIC STATION OPERATOR CHIEF [address], [place], [address], [facility] 03/03/2024 12:23:20 4 50368 Therapeutic Exercise (1:1) completed Usama Scafuri, HYDROELECTRIC STATION OPERATOR CHIEF [address], [place], [address], [facility] 02/20/2024 13:36:34 4 30706: Manual therapy completed Usama Scafuri, HYDROELECTRIC STATION OPERATOR CHIEF [address], [place], [address], [facility] 02/20/2024 13:36:38 Imaging Results None recorded. [...] Not Available Not Available No t Available celecoxib 100 mg capsule TAKE 1 CAPSULE BY MOUTH DAILY active Not Available Not [...] and Address Organization Details Last Updated DateTime 03/31/2025 167.64 cm 31.2 kg/m2 84014.33 g KIRBY HAQUEDEN [facility] 03/31/2025 11:44:29 Social History Question Answer Notes LastModified by Organizat ion Details LastModified Time Tobacco Smoking Status Never Smoker Ellen Matt torres [facility] 02/17/2025 10:17:52 What Is Your Level Of Alcohol Consumption? None [email or web address] Information not available 02/17/2025 Do You Use Any Illicit Or Recreational Drugs? No [email or web address] Information not available 02/17/2025 Sex: Unknown Functional Status None recorded. Mental Status None recorded. Family History Nothing Reported. Medical History Condition Response Allergies/Hayfever N Coronary Artery Disease N Anxiety/Depression N Breathing or lung disorders N Emphysema N Nerve Disorders N Thyroid Problems N COPD N Pacemaker N Anemia N Kidney/Bladder Problems N Vascular Disease N Heart Trouble N Heart Attack (NE) N Gastrointestinal Disease N Cholesterol Y Diabetes [...] SNOMED-CT Code Diagnosis ICD10 Code Diagnosis Note [id number] Usama Argueta HYDROELECTRIC STATION OPERATOR CHIEF [facility] [address] [place] [address] 03/02/2025 08:12:00 03/02/2025 08:34:10 Left Achilles tendinitis 5627046895 36871 M76.62 [id number] Usama Argueta HYDROELECTRIC STATION OPERATOR CHIEF [facility] [address] [place] [address] 03/07/2025 08:01:44 03/07/2025 09:47:02 Left Achilles tendinitis 9317943856 40261 M76.62 [id number] Usama Argueta, HYDROELECTRIC STATION OPERATOR CHIEF [facility] [address] [place] [address] 03/18/2025 08:04:34 03/18/2025 08:42:54 Left Achilles tendinitis 6519805185 68220 M76.62 [id number] Usama Argueta, HYDROELECTRIC STATION OPERATOR CHIEF [facility] [address] [place] [address] 03/28/2025 08:09:57 03/28/2025 08:52:02 Left Achilles tendinitis 4260710842 26672 M76.62 [id number] Usama Argueta, HYDROELECTRIC STATION OPERATOR CHIEF [facility] [address] [place] [address] 03/30/2025 08:07:05 03/30/2025 08:36:07 Left Achilles tendinitis 9111455002 23448 M76.62 [id number] MD [facility] [address] [place] [address] 03/31/2025 11:21:24 03/31/2025 14:51:51 Pain of right shoulder joint 0102410200 3745185 M25.511 Impingemen t syndrome of left shoulder region 4944946913 35984 M75.42 Health Concerns Section Related Observation LastModified by Organization Detai ls LastModified Time None Recorded Concern Status LastModified by Organization Details LastModified Time None Recorded Payers Encounter Date Sequence Insurance Name Policy Number Policy Parekh Covered Member ID Parekh Member ID Guarantor Name 03/31/2025 [employer] Bib Ellis
== END 2025-04-05 11:54 | disposition home or self-care (01) ==
LOC: HO.HSMS 11:00
PROVIDERS: PCP Internal Medicine; Visit Provider Nurse Practitioner Family
DX: G47.9 Sleep disorder, unspecified (principal); F07.81 Postconcussional syndrome; G44.309 Post-traumatic headache, unspecified, not intractable; R20.1 Hypoesthesia of skin; Z88.9 Allergy status to unspecified drugs, medicaments and biological substances
CPT/HCPCS: 99214

== ENCOUNTER → 2025-04-05 10:59 | Outpatient (BNVA) | payer MEDICAID, SELFPAY | PROVIDERS: PCP Internal Medicine; Visit Provider Nurse Practitioner Family | DX: F07.81 Postconcussional syndrome (principal); G43.909 Migraine, unspecified, not intractable, without status migrainosus; R20.1 Hypoesthesia of skin; G47.9 Sleep disorder, unspecified; Z88.9 Allergy status to unspecified drugs, medicaments and biological substances | CPT/HCPCS: 99212 ==

== ENCOUNTER 2025-04-08 11:39 | Outpatient (AMB) | payer MEDICAID, OTHER, SELFPAY ==
--- NOTE | 2025-04-08 11:39 | MHC.OFFVIS ---
Vital Signs 04/08/25 11:44 Pulse 103 H Pulse Source Pulse Oximeter Pulse Oximetry (%) 98 Oxygen Delivery Method Room Air Intake Visit Reasons: MAT Allergies celecoxib [From Celebrex] Allergy (Mild, Verified 04/08/25 11:45) Hives HPI HPI MAT: Details: He is doing well He is taking Suboxone as directed. [facility] Medical History (Updated 04/11/25 @ 00:12 by Anna Marie Vicente MD) Opioid use disorder Shoulder pain Surgical History History of shoulder surgery History of surgery Hx of rotator cuff surgery Family History Father Cancer Diabetes Hyperlipidemia Mother Cancer Hyperlipidemia HTN (hypertension) Seizures Social History Household Members: Spouse Alcohol intake: never Patient Tobacco Use Status: Never used Tobacco Current occupational status: other 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 Review of Systems Const All systems reviewed & are unremarkable except as noted in HPI and below Physical Exam Vital Signs: Last Vital Signs Pulse 103 H 04/08/25 11:44 Pulse Ox 98 04/08/25 11:44 Oxygen Delivery Method Room Air 04/08/25 11:44 Const General: cooperative Results AMB 14 Panel Urine Drug Screen Urine Marijuana (THC) Negative Last Edit by Johann Hilton CMA on 04/08/25 11:51 Urine Cocaine Negative Last Edit by Johann Hilton CMA on 04/08/25 11:51 Urine Morphine Negative Last Edit by Johann Hilton CMA on 04/08/25 11:51 Urine Methamphetamine Negative Last Edit by Johann Hilton CMA on 04/08/25 11:51 Urine Amphetamine Positive Last Edit by Johann Hilton CMA on 04/08/25 11:51 Urine Benzodiazepine Negative Last Edit by Johann Hilton CMA on 04/08/25 11:51 Urine Barbiturates Negative Last Edit by Johann Hilton CMA on 04/08/25 11:51 Urine Methadone Negative Last Edit by Johann Hilton CMA on 04/08/25 11:51 Urine Buprenorphine Positive Last Edit by Johann Hilton CMA on 04/08/25 11:51 Urine Tricyclic Antidepressant Negative Last Edit by Johann Hilton CMA on 04/08/25 11:51 Urine MDMA Negative Last Edit by Johann Hilton CMA on 04/08/25 11:51 Urine Oxycodone Negative Last Edit by Johann Hilton CMA on 04/08/25 11:51 Urine Phencyclidine Negative Last Edit by Johann Hilton CMA on 04/08/25 11:51 Urine Propoxyphene Negative Last Edit by Johann Hilton CMA on 04/08/25 11:51 Results Reviewed Results Reviewed: Laboratory Last Values POC Urine Buprenorphine Positive 04/08/25 11:45 POC Urine Morphine Negative 04/08/25 11:45 POC Urine Oxycodone Negative 04/08/25 11:45 POC Urine Methadone Negative 04/08/25 11:45 POC Urine Propoxyphene Negative 04/08/25 11:45 POC Urine Barbiturates Negative 04/08/25 11:45 POC U Tricyclic Antidpr Negative 04/08/25 11:45 POC Urine PCP Negative 04/08/25 11:45 POC Ur Amphetamines Positive 04/08/25 11:45 POC Ur Methamphetamine Negative 04/08/25 11:45 POC Urine MDMA Negative 04/08/25 11:45 POC Ur Benzodiazepine Negative 04/08/25 11:45 POC Urine Cocaine Negative 04/08/25 11:45 POC Ur Marijuana (THC) Negative 04/08/25 11:45 Assessment & Plan Assessment & Plan (1) Opioid use disorder: Code(s): F11.99 - Opioid use, unspecified with unspecified opioid-induced disorder Category: Medical Plan He is getting left shoulder replacement surgery. Continue Suboxone through this and add pain mediation prn need. Orders: Orders AMB 14 Panel Urine Drug Screen 04/08/25 Z51.81 - Encounter for therapeutic drug level monitoring Medications: New buprenorphine-naloxone 8-2 mg (Suboxone) place 1 film on inside of (each) cheek 3 film sublingual Q24H 30 days 30 ea 1RF buprenorphine-naloxone 8-2 mg (Suboxone) place 1 film on inside of (each) cheek 3 film sublingual Q24H 90 ea 1RF 30 days Coding Level of Care Code Est Pt Level 3 (74440) Diagnoses Opioid use disorder F11.99
[2025-04-08 11:44] VITALS: PULSE 103; O2SAT 98
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
== END 2025-04-08 12:48 | disposition home or self-care (01) ==
LOC: HO.HCC 11:39
PROVIDERS: PCP Internal Medicine; Visit Provider Internal Medicine
DX: Z51.81 Encounter for therapeutic drug level monitoring (principal)

== ENCOUNTER → 2025-04-08 11:39 | Outpatient (BNVA) | payer MEDICAID, SELFPAY | PROVIDERS: PCP Internal Medicine; Visit Provider Internal Medicine | DX: F11.99 Opioid use, unspecified with unspecified opioid-induced disorder (principal); Z51.81 Encounter for therapeutic drug level monitoring | CPT/HCPCS: 80307 ==

== ENCOUNTER → 2025-04-13 09:11 | Outpatient (BNVA) | payer SELFPAY | PROVIDERS: PCP Internal Medicine; Visit Provider Physician Assistant Medical | DX: Z02.79 Encounter for issue of other medical certificate (principal) ==

== ENCOUNTER 2025-05-18 09:43 | Outpatient (REF) | payer MEDICAID, SELFPAY ==
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
[2025-05-18 13:34] LABS: MANUAL DIFF FLAG NO
[2025-05-18 13:41] LABS: Basophils Absolute Auto 0.1 X10*3/uL (0.0-0.2); Basophils Percent Auto 0.7 % (0-2); Eosinophils Absolute Auto 0.1 X10*3/uL (0.0-0.4); Eosinophils Percent Auto 1.8 % (0-4); Hematocrit 55.1 % (42.0-52.0); Hemoglobin 18.4 g/dl (14.0-18.0); Imm Gran Abs Auto 0.04 X10*3/uL (0.00-0.03); Imm Gran Pct Auto 0.5 % (0.0-0.4); Lymphocytes Absolute Auto 2.5 X10*3/uL (1.2-4.9); Lymphocytes Percent Auto 34.4 % (20-40); Mean Corpuscular HGB Conc 33.4 g/dl (31.0-36.0); Mean Corpuscular Hemoglobin 29.6 pg (27.0-33.0); Mean Corpuscular Volume 88.7 fL (80.0-98.0); Mean Platelet Volume 9.8 fL (9.4-12.4); Monocytes Absolute Auto 0.8 X10*3/uL (0.1-1.2); Neutrophils Absolute Auto 3.8 x10*3/uL (2.0-8.3); Neutrophils Percent Auto 51.6 % (45-73); Platelet Count 289 X10*3/uL (160-400); Red Blood Count 6.21 X10*6/uL (4.60-5.80); Red Cell Distribution Width 14.1 % (11.0-16.0); White Blood Count 7.4 X10*3/uL (4.8-10.8)
[2025-05-18 13:58] LABS: Alanine Aminotransferase 49 U/L (0-40); Albumin Level 4.2 g/dL (3.5-5.0); Alkaline Phosphatase 27 U/L (39-117); Anion Gap 10 (12-20); Aspartate Amino Transferase 53 U/L (5-37); Bilirubin Total 0.6 mg/dL (0.0-1.0); Blood Urea Nitrogen 15 mg/dL (9-16); Calcium 9.3 mg/dL (8.4-10.2); Carbon Dioxide 28 mmol/L (22-29); Chloride 102 mmol/L (96-108); Cholesterol 197 mg/dL (<200); Estimated Glomerular Filt Rate > 60; Glucose Random 80 mg/dL (60-115); HDL Cholesterol 26 mg/dL (>40); LDL Cholesterol Calculated 150 mg/dL (<100); Potassium 4.3 mmol/L (3.3-5.1); Sodium 136 mmol/L (135-145); Total Protein 6.6 g/dL (6.5-8.0); Triglycerides 109 mg/dL (<150)
[2025-05-18 14:09] LABS: Prostate Specific Antigen 0.89 ng/mL (<0.05-4.0)
[2025-05-22 15:48] LABS: Testosterone, Total 1277 ng/dL (250-1100)
== END 2025-05-18 09:44 | disposition home or self-care (01) ==
LOC: HO.MANLDS 09:43
PROVIDERS: Visit Provider Internal Medicine
DX: I10 Essential (primary) hypertension (principal); R89.1 Abnormal level of hormones in specimens from other organs, systems and tissues
CPT/HCPCS: 36415; 80053; 80061; 84153; 84403; 85025

== ENCOUNTER 2025-05-25 15:51 | Outpatient (AMB) | payer MEDICAID, SELFPAY ==
[2025-05-25 15:52] VITALS: PULSE 89; O2SAT 98
--- NOTE | 2025-05-25 15:52 | A.OFFVIS_ITS ---
Vital Signs 05/25/25 15:52 Height 5 ft 6 in Pulse 89 Pulse Source Pulse Oximeter Pulse Oximetry (%) 98 Oxygen Delivery Method Room Air Intake Visit Reasons: mat visit Allergies celecoxib (From Celebrex) Allergy (Mild, Verified 05/25/25 15:56) Hives HPI HPI mat visit: Details: He is going away on vacation. [facility] Medical History (Updated 05/30/25 @ 14:05 by Anna Marie Vicente MD) Opioid use disorder Shoulder pain Surgical History History of shoulder surgery History of surgery Hx of rotator cuff surgery Family History Father Cancer Diabetes Hyperlipidemia Mother Cancer Hyperlipidemia HTN (hypertension) Seizures Social History Household Members: Spouse Alcohol intake: never Patient Tobacco Use Status: Never used Tobacco Current occupational status: other 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 Review of Systems Const All systems reviewed & are unremarkable except as noted in HPI and below Physical Exam Vital Signs: Last Vital Signs Pulse 89 05/25/25 15:52 Pulse Ox 98 05/25/25 15:52 Oxygen Delivery Method Room Air 05/25/25 15:52 Const General: cooperative Assessment & Plan Assessment & Plan (1) Opioid use disorder: Comment: He has been stable on Suboxone dosing. Code(s): F11.99 - Opioid use, unspecified with unspecified opioid-induced disorder Category: Medical Plan: Continue current Suboxone See as scheduled. Medications: New buprenorphine-naloxone 8-2 mg (Suboxone) 1 film sublingual TID 90 ea 1RF 30 days Coding Level of Care Code Est Pt Level 3 (11415) Diagnoses Opioid use disorder F11.99
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
== END 2025-05-25 16:34 | disposition home or self-care (01) ==
LOC: HO.HID 15:51
PROVIDERS: PCP Internal Medicine; Visit Provider Internal Medicine
DX: F11.99 Opioid use, unspecified with unspecified opioid-induced disorder (principal)
CPT/HCPCS: 99213

== ENCOUNTER → 2025-05-25 15:51 | Outpatient (BNVA) | payer MEDICAID, SELFPAY | PROVIDERS: PCP Internal Medicine; Visit Provider Internal Medicine | DX: F11.21 Opioid dependence, in remission (principal) | CPT/HCPCS: 99212 ==

== ENCOUNTER 2025-07-21 09:35 | Outpatient (AMB) | payer MEDICAID, SELFPAY ==
[2025-07-21 09:40] VITALS: BP 136/76; PULSE 96; O2SAT 98; BMI 32.3
--- NOTE | 2025-07-21 09:40 | A.OFFVIS_ITS ---
Vital Signs 07/21/25 09:40 Height 5 ft 6 in Weight 200 lb BMI 32.3 BP 136/76 Pulse 96 Pulse Oximetry (%) 98 Intake Visit Reasons: MAT Allergies celecoxib (From Celebrex) Allergy (Mild, Verified 07/21/25 09:40) Hives Medication List - Last Reconciled 07/21/25 by DOUG Rodriguez albuterol sulfate 90 mcg/actuation (Ventolin HFA) 2 puffs inhalation Q4-6H PRN ascorbic acid (vitamin C) 1 g PO DAILY atorvastatin (Lipitor) 10 mg PO DAILY buprenorphine-naloxone 8-2 mg (Suboxone) 1 film sublingual TID 30 days ofxoohnibd-ihzauisarfbec-pbce 50-325-40 mg 1 cap PO Q4H PRN 30 days cholecalciferol (vitamin D3) 25 mcg PO DAILY dextroamphetamine-amphetamine 15 mg (Adderall) 15 mg PO DAILY 30 days dextroamphetamine-amphetamine 20 mg ER (Adderall XR) 20 mg PO QAM 30 days epinephrine (EpiPen 2-Ezequiel) 0.3 mg (0.3 mL) IM Q10M PRN 30 days fluticasone propion-salmeterol 100-50 mcg/dose (Advair Diskus) 1 inh inhalation BID fremanezumab-vfrm (Ajovy Syringe) 225 mg (1.5 mL) subcut ONCE 30 days lisinopril-hydrochlorothiazide 20-25 mg 1 tab PO DAILY magnesium oxide 400 mg PO BEDTIME 30 days metoprolol succinate ER 50 mg PO DAILY montelukast (Singulair) 10 mg PO DAILY multivitamin 1 tab PO DAILY naloxone 4 mg/actuation (Narcan) 4 mg intranasal Q2M PRN riboflavin (vitamin B2) 200 mg (2 x 100 mg) PO BID 30 days sumatriptan succinate 50 - 100 mg orally at onset of headache, may repeat in 2 hrs PRN; max 2 tabs per day or 4 tabs/week (may take with Ibuprofen) 30 days testosterone cypionate 100 mg IM QWEEK HPI Comments Details: A 45-year-old male presents for follow-up r/t DONAVON in sustained remission with buprenorphine-naloxone 8-2 mg TID. Denies use of opiates, alcohol, and other substances. Reports doing well and feeling stable on buprenorphine-naloxone. Engages in conversation regarding 6 week vacation he had with family and discussing upcoming Achilles tendon surgery he will be undergoing on August 10. [facility] Medical History (Updated 07/21/25 @ 10:11 by DOUG Rodriguez) Opioid use disorder Shoulder pain Surgical History History of shoulder surgery History of surgery Hx of rotator cuff surgery Family History Father Cancer Diabetes Hyperlipidemia Mother Cancer Hyperlipidemia HTN (hypertension) Seizures Social History Household Members: Spouse Alcohol intake: never Patient Tobacco Use Status: Never used Tobacco Current occupational status: other 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 Review of Systems Const All systems reviewed & are unremarkable except as noted in HPI and below Physical Exam Vital Signs: Last Vital Signs Pulse 96 07/21/25 09:40 BP 136/76 07/21/25 09:40 Pulse Ox 98 07/21/25 09:40 BMI result Body Mass Index 32.3 Const General: cooperative Psych Appearance: well kempt Mental Status: mental status grossly normal Speech and movement: Normal speech and movement present Affect: normal affect Attitude: cooperative Thought process: Normal thought process present Thought content: Normal thought content present Insight: Good insight present (Psych) Judgement: Good judgement present (Psych) Assessment & Plan Assessment & Plan (1) Opioid use disorder in remission: Code(s): F11.91 - Opioid use, unspecified, in remission Category: Medical Plan The plan of care is to continue with buprenorphine-naloxone 8-2 mg TID and follow-up in 3 months or sooner if needed. Medications: Changed From buprenorphine-naloxone 8-2 mg (Suboxone) 1 film sublingual TID 30 days 90 ea 1RF To buprenorphine-naloxone 8-2 mg (Suboxone) Take one film sublingually three times per day. 1 film sublingual TID 90 ea 2RF 30 days Patient Instructions: - Continue with buprenorphine-naloxone as prescribed. - Follow-up in 3 months or sooner if needed. - Call with questions, concerns, or to report side effects/new onset of symptoms to [facility]. - The patient verbalized understanding and agreed with plan of care. Coding Level of Care Code Est Pt Level 3 (66258) Diagnoses Opioid use disorder in remission F11.91
== END 2025-07-21 09:55 | disposition home or self-care (01) ==
LOC: HO.HCC 09:35
PROVIDERS: PCP Internal Medicine; Visit Provider Clinical Nurse Specialist Psychiatric/Mental Health
DX: F11.91 Opioid use, unspecified, in remission (principal)
CPT/HCPCS: 99213

== ENCOUNTER → 2025-07-21 09:35 | Outpatient (BNVA) | payer MEDICAID, SELFPAY | PROVIDERS: PCP Internal Medicine; Visit Provider Clinical Nurse Specialist Psychiatric/Mental Health | DX: F11.91 Opioid use, unspecified, in remission (principal); Z79.899 Other long term (current) drug therapy | CPT/HCPCS: 99212 ==

== ENCOUNTER 2025-10-19 11:29 | Outpatient (REF) | payer MEDICAID, SELFPAY ==
[2025-10-19 13:10] LABS: MANUAL DIFF FLAG NO
[2025-10-19 13:34] LABS: Hematocrit 53.0 % (42.0-52.0); Hemoglobin 18.3 g/dl (14.0-18.0); Imm Gran Abs Auto 0.01 X10*3/uL (0.00-0.03); Imm Gran Pct Auto 0.1 % (0.0-0.4); Lymphocytes Absolute Auto 2.2 X10*3/uL (1.2-4.9); Mean Corpuscular HGB Conc 34.5 g/dl (31.0-36.0); Mean Corpuscular Hemoglobin 30.0 pg (27.0-33.0); Mean Corpuscular Volume 87.0 fL (80.0-98.0); NRBC Abs Auto 0.000 X10*3/uL (0.0-0.012); NRBC Pct Auto 0.0 /100WBC (0.0-0.2); Platelet Count 259 X10*3/uL (160-400); Red Blood Count 6.09 X10*6/uL (4.60-5.80); White Blood Count 6.9 X10*3/uL (4.8-10.8)
[2025-10-19 14:26] LABS: Alanine Aminotransferase 85 U/L (0-40); Albumin Level 4.6 g/dL (3.5-5.0); Alkaline Phosphatase 46 U/L (39-117); Anion Gap 14 (12-20); Aspartate Amino Transferase 151 U/L (5-37); Blood Urea Nitrogen 26 mg/dL (9-16); Calcium 9.7 mg/dL (8.4-10.2); Carbon Dioxide 27 mmol/L (22-29); Chloride 101 mmol/L (96-108); Estimated Glomerular Filt Rate > 60; Iron 208 mcg/dL (45-160); Percent Iron Saturation 55 % (15-50); Potassium 4.2 mmol/L (3.3-5.1); Sodium 138 mmol/L (135-145); Total Iron Binding Capacity 375 mcg/dL (228-428); Total Protein 7.1 g/dL (6.5-8.0); Unsaturated Iron Binding 167 ug/dL
[2025-10-19 14:56] LABS: Ferritin 319 ng/mL (20-250); Prostate Specific Antigen 0.43 ng/mL (<0.05-4.0)
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
[2025-10-28 17:13] LABS: Testosterone, Free 3.5 pg/mL (35.0-155.0)
== END 2025-10-19 11:30 | disposition home or self-care (01) ==
LOC: HO.MANLDS 11:29
PROVIDERS: Visit Provider Internal Medicine
DX: I10 Essential (primary) hypertension (principal); E29.1 Testicular hypofunction; D58.2 Other hemoglobinopathies; R79.89 Other specified abnormal findings of blood chemistry; Z80.42 Family history of malignant neoplasm of prostate
CPT/HCPCS: 36415; 80053; 82728; 83540; 84153; 84402; 84403; 85025

== ENCOUNTER 2025-10-20 09:34 | Outpatient (AMB) | payer MEDICAID, SELFPAY ==
[2025-10-20 09:47] VITALS: BP 120/70; PULSE 70; O2SAT 96
--- NOTE | 2025-10-20 09:47 | MHC.OFFVIS ---
Vital Signs 10/20/25 09:47 BP 120/70 Pulse 70 Pulse Oximetry (%) 96 Intake Visit Reasons: MAT Allergies celecoxib (From Celebrex) Allergy (Mild, Verified 10/20/25 09:48) Hives HPI Comments Details: A 45-year-old male presents for a follow-up visit r/t DONAVON in sustained remission with buprenorphine-naloxone 8-2 mg TID. Denies use of opiates, alcohol, and other substances. Reports will be undergoing surgery next week for a bicep injury. Engages in conversation re: Looking forward to spending quality time with family for holidays. [facility] Medical History Opioid use disorder Shoulder pain Surgical History History of shoulder surgery History of surgery Hx of rotator cuff surgery Family History Father Cancer Diabetes Hyperlipidemia Mother Cancer Hyperlipidemia HTN (hypertension) Seizures Social History Household Members: Spouse Alcohol intake: never Patient Tobacco Use Status: Never used Tobacco Current occupational status: other 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 Review of Systems Const All systems reviewed & are unremarkable except as noted in HPI and below Physical Exam Vital Signs: Last Vital Signs Pulse 70 10/20/25 09:47 BP 120/70 10/20/25 09:47 Pulse Ox 96 10/20/25 09:47 Const General: cooperative Assessment & Plan Assessment & Plan (1) Opioid use disorder in remission: Code(s): F11.91 - Opioid use, unspecified, in remission Category: Medical Plan The plan of care is to continue with buprenorphine-naloxone 8-2 mg TID and follow-up in 3 months or sooner if needed. Medications: Refilled buprenorphine-naloxone 8-2 mg (Suboxone) Take one film sublingually three times per day. 1 film sublingual TID 90 ea 2RF 30 days Patient Instructions: - Continue with buprenorphine-naloxone as prescribed. - Follow-up in 3 months or sooner if needed. - Call with questions, concerns, or to report side effects/new onset of symptoms to [facility]. - The patient verbalized understanding and agreed with plan of care. Coding Level of Care Code Est Pt Level 3 (30196) Diagnoses Opioid use disorder in remission F11.91
--- OUTSIDE RECORDS SUMMARY | 2025-10-20 13:18 | XMS_ITS | Continuity of Care Document ---
Author Organization [facility] Address [address] [place] [address] Assessment Encounter Date Assessment Date Assessment LastModified by Organization Details LastModified Time 10/05/2025 10/05/2025 [id number] [place] [id number] ([employer]) MDM MODERATE MUST MEET 2 OUT OF [...] Lab CMP, serum or plasma 2024 025 [facility], [address] [place] [address], [address], 10/05/2025 09:59:06 CBC 2024 025 [facility], [address] [place] [address], [place], [address], 10/05/2025 09:59:07 iron + TIBC + ferritin , serum 2024 [facility], [address] [place] [address], [place], [address], 10/05/2025 09:59:07 PSA, serum or plasma 2024 025 [facility], [address] [place] [address], [address], 10/05/2025 09:59:07 testoste morenita, free + total, serum 2024 [facility], [address] [place] [address], [address], 10/05/2025 09:59:07 Referral None recorded . Procedures None recorded . Surgeries None recorded . Imaging None recorded . Medication Orders None recorded . Patient TargetsNo targets recorded. Patient Instructions Encounter Date Encounter Id Patient Instructions Last Modified By Organization Details Last Modified Time 10/05/2025 [id number] pulse oximetry* Not available 10/05/2025 09:57:48 Reason for Referral None Reported. Results Created Date Observation Date Name Description Value Unit Range Abnormal Flag Note LastModifiedBy Organization Detail LastModifiedTime 10/05/2010/05/2025 pulse oxime try* Result 97 Not Available [facility] [address] [facility] [address], [place], [address], 08/22/2025 11:50:07 Result Notes None recorded. Problems Name Problem SNOMED Code Status Onset Date Resolution Date Notes Provider Name and Address Organization Details Recorded Time Asthma 018130384 Active 2017 Krystina torres [facility] 8 12:20:05 Hyperchol esterolem ia 22414150 Active 2018 Abhishek Otoole, [address] [facility], [place], [address], [facility] [place], [facility] 9 11:33:43 Seasonal allergic rhinitis 241189694 Active 2021 Abhishek Otoole, DO [address] [place] [address], [address], [facility] [place], [facility] 2 10:53:21 Tachycard ia 6884754 Active 2022 Abhishek MonoJohnnie Otoole, DO [address] [place] [address], [address], [facility] [place], operated [facility] 3 12:41:55 Hypertens jorgito disorder 38840315 Active 2022 Abhishek Otoole, DO [address] [place] [address], [address], [facility] [place], operated [facility] 3 12:43:12 Pain of bilateral hip joints 095680594054 89321 Active 2022 Abhishek Otoole, DO [address] [place] [address], [address], [facility] [place], [facility] 3 22:16:28 Family history of malignant melanoma 055161096 Active 2022 Abhishek Otoole, DO [address] [place] [address], [address], [facility] [place], [facility] 3 11:16:02 Cough 24951212 Active 2022 Abhishek Otoole, DO [address] [place] [address], [address], [facility] [place], operated [facility] 3 16:03:38 Right lower quadrant pain 206684880 Active 2023 Abhishek Otoole, DO [address] [place] [address], [address], [facility] [place], operated [facility] 4 14:39:38 Acute epididymi tis 68697323 Active 2023 Abhishek Otoole DO [address] [place] [address], [address], [facility] [place], operated [facility] 4 14:43:23 Fatigue 35676033 Active 2023 Abhishek Otoole DO [address] [place] [address], [address], [facility] [place], [facility] 4 10:23:21 Achilles tendiniti s 42700131 Active 2023 Abhishek Otoole, DO [address] [place] [address], [address], [facility] [place], [facility] 4 10:24:21 Achilles tendiniti s 87458948 Active 2023 Abhishek Otoole, DO [address] [place] [address], [address], [facility] [place], [facility] 4 10:24:23 Serum ferritin above reference range 467160038 Active 2023 Abhishek Otoole DO [address] [place] [address], [address], [facility] [place], [facility] 5 09:57:14 Hypotesto steronism 479277819452 4 Active 2023 Abhishek Otoole DO [address] [place] [address], [address], [facility] [place], [facility] 4 22:57:20 Pain of left ankle joint 189290046304 18693 Active 2023 CARLEY ALEJANDRE [address] [place] [address], [address], [facility] [place], [facility] 4 10:30:14 Os trigonum impingeme nt 838621882 Active 2023 CARLEY ALEJANDRE [address] [place] [address], [address], [facility] [place], [facility] 4 12:24:54 Allergic rhinitis caused by pollen 71759423 Active 2024 Abhishek Otoole DO [address] [place] [address], [address], [facility] 5 12:25:55 Acute contact dermatiti s 136983146 Active 2024 Abhishek Otoole DO [address] [place] [address], [address], [facility] [place], operated [facility] 5 13:36:16 Protein level - finding 142597927 Active 2024 Abhishek VillarealJohnnie Jeannette, DO [address] [facility], [place], [address], [facility] [place], [facility] 5 09:57:10 Notes:herniated disc- Dr. [...] (BMI) Body weight Heart rate Oxygen saturation Systolic And Diastolic Provider Name and Address Organization Details Last Updated DateTime 167.64 cm 31.2 kg/m2 97639.3 3 g 94 /min 97 % 116/62 mm[Hg] Abhishek Otoole, [address] [place], [address] [place] [address] Internal Medicine 5 09:32:51 Social History Question Answer Notes LastModified by Organizat ion Details LastModified Time Tobacco Smoking Status Never Smoker Krystina Sam [facility] 03/20/2018 15:47:21 What Was [...] virus, quadrivalent, preservative 9 completed Not Available [facility] 11/07/2023 11:38:52 Influenza, split virus, quadrivalent, preservative 0 completed Not Available [facility] 11/07/2023 11:38:52 Past Encounters Encounter ID Performer Location Encounter Start Date Encounter Closed Date Diagnosis/Indication Diagnosis SNOMED-CT Code Diagnosis ICD10 Code Diagnosis IMO Codes Diagnosis Note [id number] Abhishek Otoole DO [facility] [address] [facility],[place] [address] 10/05/2025 09:27:54 10/05/2025 10:34:45 Depression screening 521538950 Z13.31 Neg Screening Hypertensive disorder 38 885887 I10 much better feels that home Asthma 163871352 J45.90 9 relates that he is using albut inhaler about twice a week Male hypogonadism 468675 06 E29.1 54935866 Family his tory of malignant neoplasm of prostate 797107872 Z80.42 297634 Serum ferr itin above reference range 784114412 R79.89 D58.2 R71.8 [id number] Health Concerns Section Related Observation LastModified by Organization Detai ls LastModified Time None Recorded Concern Status LastModified by Organization Details LastModified Time None Recorded Payers Encounter Date Sequence Insurance Name Policy Number Policy Parekh Covered Member ID Parekh Member ID Guarantor Name 10/05/2025 1 [place]: [facility] Bib Ellis [id number] Bib Ellis Notes Date Note Type Note Provider Name and Address Organization Details Recorded Time 5 text/htm l Care Management - HypertensionReported by [...] has not been following him enough Abhishek Otoole, DO [address] [facility], [place], [address], [facility] 10/05/2025 14:13:56
== END 2025-10-20 09:52 | disposition home or self-care (01) ==
LOC: HO.HCC 09:34
PROVIDERS: PCP Internal Medicine; Visit Provider Clinical Nurse Specialist Psychiatric/Mental Health
DX: F11.91 Opioid use, unspecified, in remission (principal)
CPT/HCPCS: 99213

== ENCOUNTER → 2025-10-20 09:34 | Outpatient (BNVA) | payer MEDICAID, SELFPAY | PROVIDERS: PCP Internal Medicine; Visit Provider Clinical Nurse Specialist Psychiatric/Mental Health | DX: F11.91 Opioid use, unspecified, in remission (principal) | CPT/HCPCS: 99212 ==